=== PATIENT | female | born 1945 | race Caucasian/White ===

== ENCOUNTER 2021-10-19 20:24 | Inpatient (IN) | payer MEDICARE, SELFPAY ==
[2021-10-19 21:03] VITALS: BMI 31.1
--- NOTE | 2021-10-19 21:05 | PHA.MEDREC ---
Pharmacy Consult ? Medication Reconciliation Pharmacy has completed the medication reconciliation.
[2021-10-19 21:11] VITALS: BP 112/70; PULSE 74; RESP 18; TEMP 36.1; O2SAT 97
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
[2021-10-20 07:10] LABS: Cholesterol 143 mg/dL; HDL Cholesterol 44 mg/dL; LDL Cholesterol Calculated 85 mg/dl; Triglycerides 72 mg/dL
--- NOTE | 2021-10-20 07:26 | PC.ADMIT ---
son rhina called to inform him that his mother had arrived safely. son did not answer phone. message left on answering machine that his mother had arrived safely and unit phone number left.
[2021-10-20 07:31] LABS: Thyroid Stimulating Hormone 0.72 uIU/mL (0.32-4.0)
[2021-10-20 07:35] LABS: Estimated Average Glucose 105 mg/dL; Hemoglobin A1C 102.3914 umol/L; Hemoglobin A1c % 5.3 %
[2021-10-20 08:00] VITALS: BP 124/68; PULSE 64; RESP 16; TEMP 36.5; O2SAT 98
[2021-10-20 08:36] LABS: Folate 8.2 ng/mL (> or = 4.0); Vitamin B12 376 pg/mL (200-900)
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
[2021-10-20 18:00] VITALS: BP 103/49; PULSE 64; RESP 16; TEMP 36.6; O2SAT 98
[2021-10-20 19:03] LABS: Appearance Urine CLEAR; Color Urine YELLOW; Glucose Urine UA NEG (NEG); Leukocyte Esterase Urine 1+ (NEG); Nitrite Urine NEG (NEG); Specific Gravity - Urine 1.025 (1.005-1.025); Urine Blood TRACE (NEG); Urine Ketones NEG (NEG); Urine Protein NEG (NEG-TRACE)
[2021-10-20 19:20] LABS: RBC Urine 0-2 /HPF (0); Squamous Epithelial Cell Urine TRACE /LPF
[2021-10-20] MEDS: Atorvastatin Calcium 20 MG TABLET PO (21:07)
--- NOTE | 2021-10-20 23:41 | PC.NURSE ---
unemployment benefits claims taker yue whitney contacted and notified 1. pts med shyann is non-formulary and unavailable from hospital pharmacy 2. pts son Jose Armando is unable to obtain medication 3. pts former nursing facility is also not able to provide medication 4. pts vital signs reviewed.
[2021-10-21 08:00] VITALS: BP 118/57; PULSE 63; RESP 14; TEMP 36.6; O2SAT 96
[2021-10-21] MEDS: hydroCHLOROthiazide 12.5 MG TABLET PO (09:04)
[2021-10-21] MEDS: Sodium Chloride Tab 1 GM TABLET PO (09:04)
[2021-10-21] MEDS: FLUoxetine HCl 20 MG CAPSULE 60 MG PO (09:04)
[2021-10-21] MEDS: Losartan Potassium 50 MG TABLET PO (09:05)
[2021-10-21] MEDS: Donepezil HCl 10 MG TABLET PO (09:05)
[2021-10-21] MEDS: Levothyroxine Sodium 75 MCG TABLET PO (09:05)
[2021-10-21] MEDS: Aspirin Enteric Coated 81 MG TABLET.DR PO (09:05)
[2021-10-21 11:49] VITALS: BMI 30.2
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
[2021-10-21 18:00] VITALS: BP 134/76; PULSE 61; RESP 16; TEMP 36.5; O2SAT 98
[2021-10-21] MEDS: Atorvastatin Calcium 20 MG TABLET PO (21:40)
[2021-10-22 06:00] VITALS: BP 142/76; PULSE 66; RESP 16; TEMP 36.4; O2SAT 98
[2021-10-22] MEDS: Aspirin Enteric Coated 81 MG TABLET.DR PO (09:50)
[2021-10-22] MEDS: FLUoxetine HCl 20 MG CAPSULE 60 MG PO (09:50)
[2021-10-22] MEDS: Donepezil HCl 10 MG TABLET PO (09:50)
[2021-10-22] MEDS: Losartan Potassium 50 MG TABLET PO (09:50)
[2021-10-22] MEDS: Sodium Chloride Tab 1 GM TABLET PO (09:50)
[2021-10-22] MEDS: Levothyroxine Sodium 75 MCG TABLET PO (09:51)
[2021-10-22] MEDS: hydroCHLOROthiazide 12.5 MG TABLET PO (09:51)
--- NOTE | 2021-10-22 15:20 | HO.PSYCHPN ---
Subjective Subjective Date of Service: 10/22/21 Reason For Visit: Unspecified dementia Subjective Notes: Conditional Voluntary Interim History: The nursing staff reported that she has being out in the common areas she attends to groups and she looks pleasantly confused. On interview the patient denies new symptoms she states that she is doing fine. So far we have not seen violent behavior or agitation or paranoia. The aids social worker reported that her son has not called as back yet and we could not get more collateral information at this moment Mental Status Exam Mental Status Exam Patient Appearance: Appropriate Patient Orientation: Person and Situation Level of Consciousness: Awake Mood Description: Calm Affect Description: Constricted Patient Cognition Impaired: Yes Ability to Follow Directions: Fair Speech Pattern: Clear Hallucinations: None Delusions: Not Present Thought Process: Linear Thought Content: positive for Circumstantial Judgement: Fair Diagnostics Vital Signs (24Hr): Vital Signs - 24 hr 10/21/21 18:00 10/22/21 06:00 Temperature 97.7 F 97.5 F Pulse Rate 61 66 Respiratory Rate 16 16 Blood Pressure 134/76 142/76 H Pulse Oximetry 98 98 BMI result Body Mass Index 30.2 Labs Labs: Laboratory Results - last 48 hr 10/20/21 18:40 Urine Color YELLOW Urine Appearance CLEAR Urine pH 6.0 Ur Specific [place] 1.025 Urine Protein NEG Urine Glucose (UA) NEG Urine Ketones NEG Urine Blood TRACE Urine Nitrite NEG Ur Leukocyte Esterase 1+ H Urine RBC 0-2 Urine WBC 5-9 H Ur Squamous Epith Cells TRACE Urine Bacteria NONE Medications Medications Current Medications Acetaminophen (Acetaminophen 325 Mg Tablet) 650 mg PO Q6H PRN PRN Reason: Headache/Pain Mild Scale (1-3) Al Hydroxide/Mg Hydroxide (Magnesium Hydrox/Alum Hydrox 30 Ml Oral.Susp) 30 ml PO Q6H PRN PRN Reason: Heartburn/Nausea Aspirin (Aspirin Enteric Coated 81 Mg Tablet.) 81 mg PO DAILY [facility] Last Admin: 10/22/21 09:50 Dose: 81 mg Documented by: Atorvastatin Calcium (Atorvastatin Calcium 20 Mg Tablet) 20 mg PO BEDTIME [facility] Last Admin: 10/22/21 02:15 Dose: Not Given Documented by: Donepezil HCl (Donepezil Hcl 10 Mg Tablet) 10 mg PO DAILY [facility] Last Admin: 10/22/21 09:50 Dose: 10 mg Documented by: Fluoxetine HCl (Fluoxetine Hcl 20 Mg Capsule) 60 mg PO DAILY [facility] Last Admin: 10/22/21 09:50 Dose: 60 mg Documented by: Hydrochlorothiazide (Hydrochlorothiazide 12.5 Mg Tablet) 12.5 mg PO DAILY [facility] Last Admin: 10/22/21 09:51 Dose: 12.5 mg Documented by: Hydroxyzine HCl (Hydroxyzine Hcl 25 Mg Tablet) 25 mg PO Q6H PRN PRN Reason: Anxiety Levothyroxine Sodium (Levothyroxine Sodium 75 Mcg Tablet) 75 mcg PO DAILY [facility] Last Admin: 10/22/21 09:51 Dose: 75 mcg Documented by: Losartan Potassium (Losartan Potassium 50 Mg Tablet) 50 mg PO DAILY [facility] Last Admin: 10/22/21 09:50 Dose: 50 mg Documented by: Magnesium Hydroxide (Milk Of Magnesia 30 Ml Oral.Susp) 30 ml PO DAILY PRN PRN Reason: Constipation Non-Formulary Medication (Nebivolol [Bystolic]) 5 mg PO DAILY [facility] Sodium Chloride (Sodium Chloride 0.65 % Nasal 44 Ml Sprbtl) 1 spray NOSTRIL-B QID PRN PRN Reason: Allergy Symptoms Sodium Chloride (Sodium Chloride Tab 1 Gm Tablet) 1 gm PO DAILY [facility] Last Admin: 10/22/21 09:50 Dose: 1 gm Documented by: Trazodone HCl (Trazodone Hcl 50 Mg Tablet) 50 mg PO BEDTIME PRN PRN Reason: Insomnia Allergies Allergies Allergy/AdvReac Type Severity Reaction Status Date / Time iodine Allergy Intermediate Rash Verified 10/19/21 21:07 Assessment & Plan Assessment & Plan (1) Hypothyroidism: Status: Inactive Code(s): E03.9 - Hypothyroidism, unspecified (2) Hyperlipidemia: Status: Inactive Code(s): E78.5 - Hyperlipidemia, unspecified (3) H/O: HTN (hypertension): Status: Inactive Code(s): Z86.79 - Personal history of other diseases of the circulatory system (4) Depressive disorder: Status: Acute Code(s): F32.A - Depression, unspecified (5) Dementia: Status: Inactive Code(s): F03.90 - Unspecified dementia without behavioral disturbance Plan The patient is an elderly female with a history of dementia transfer in from her assisted living facility for an episode of violence in the context of UTI. On admission, she has never been violent and she is pleasant and cooperative but looks confused. Plan 1. Continue same medications. 2. Gather collateral information. 3. At this moment we are not going to start any mood stabilizer or psychotropic medication and till we get more collateral information I spent minutes with the patient and/or on the patient floor today, greater than?50% of which was spent counseling/coordinating care. Reason for contiued inpatient stay Substantial Risk for: inability to function, rapid decompensation and med/psych decompensation
[2021-10-22 19:30] VITALS: BP 136/72; PULSE 68; RESP 18; TEMP 36.8; O2SAT 98
[2021-10-22] MEDS: Atorvastatin Calcium 20 MG TABLET PO (20:44)
[2021-10-23 07:40] VITALS: BP 113/70; PULSE 81; RESP 18; TEMP 36.8; O2SAT 99
[2021-10-23] MEDS: Levothyroxine Sodium 75 MCG TABLET PO (09:04)
[2021-10-23] MEDS: hydroCHLOROthiazide 12.5 MG TABLET PO (09:04)
[2021-10-23] MEDS: Sodium Chloride Tab 1 GM TABLET PO (09:04)
[2021-10-23] MEDS: FLUoxetine HCl 20 MG CAPSULE 60 MG PO (09:04)
[2021-10-23] MEDS: Donepezil HCl 10 MG TABLET PO (09:04)
[2021-10-23] MEDS: Aspirin Enteric Coated 81 MG TABLET.DR PO (09:04)
[2021-10-23] MEDS: Losartan Potassium 50 MG TABLET PO (09:05)
--- NOTE | 2021-10-23 09:20 | P.PNPSI_ITS ---
Subjective Subjective Date of Service: 10/23/21 Reason For Visit: Unspecified dementia Subjective Notes: Conditional Voluntary Interim History: The patient has been active in the milieu using walker somewhat expansive at times patient has been accepting treatment Mental Status Exam Mental Status Exam Patient Appearance: Appropriate Patient Orientation: Person and Situation Level of Consciousness: Awake Patient Behavior: Good Eye Contact Mood Description: Calm Affect Description: Constricted Patient Cognition Impaired: Yes Ability to Follow Directions: Fair Speech Pattern: Clear Hallucinations: None Delusions: Not Present Thought Process: Linear Thought Content: positive for Circumstantial Judgement: Fair Diagnostics Vital Signs (24Hr): Vital Signs - 24 hr 10/22/21 19:30 10/23/21 07:40 Temperature 98.2 F 98.3 F Pulse Rate 68 81 Respiratory Rate 18 18 Blood Pressure 136/72 113/70 Pulse Oximetry 98 99 BMI result Body Mass Index 30.2 Medications Medications Current Medications Acetaminophen (Acetaminophen 325 Mg Tablet) 650 mg PO Q6H PRN PRN Reason: Headache/Pain Mild Scale (1-3) Al Hydroxide/Mg Hydroxide (Magnesium Hydrox/Alum Hydrox 30 Ml Oral.Susp) 30 ml PO Q6H PRN PRN Reason: Heartburn/Nausea Aspirin (Aspirin Enteric Coated 81 Mg Tablet.) 81 mg PO DAILY [facility] Last Admin: 10/23/21 09:04 Dose: 81 mg Documented by: Atorvastatin Calcium (Atorvastatin Calcium 20 Mg Tablet) 20 mg PO BEDTIME [facility] Last Admin: 10/22/21 20:44 Dose: 20 mg Documented by: Donepezil HCl (Donepezil Hcl 10 Mg Tablet) 10 mg PO DAILY [facility] Last Admin: 10/23/21 09:04 Dose: 10 mg Documented by: Fluoxetine HCl (Fluoxetine Hcl 20 Mg Capsule) 60 mg PO DAILY [facility] Last Admin: 10/23/21 09:04 Dose: 60 mg Documented by: Hydrochlorothiazide (Hydrochlorothiazide 12.5 Mg Tablet) 12.5 mg PO DAILY [facility] Last Admin: 10/23/21 09:04 Dose: 12.5 mg Documented by: Hydroxyzine HCl (Hydroxyzine Hcl 25 Mg Tablet) 25 mg PO Q6H PRN PRN Reason: Anxiety Levothyroxine Sodium (Levothyroxine Sodium 75 Mcg Tablet) 75 mcg PO DAILY [facility] Last Admin: 10/23/21 09:04 Dose: 75 mcg Documented by: Losartan Potassium (Losartan Potassium 50 Mg Tablet) 50 mg PO DAILY [facility] Last Admin: 10/23/21 09:05 Dose: 50 mg Documented by: Magnesium Hydroxide (Milk Of Magnesia 30 Ml Oral.Susp) 30 ml PO DAILY PRN PRN Reason: Constipation Non-Formulary Medication (Nebivolol [Bystolic]) 5 mg PO DAILY [facility] Sodium Chloride (Sodium Chloride 0.65 % Nasal 44 Ml Sprbtl) 1 spray NOSTRIL-B QID PRN PRN Reason: Allergy Symptoms Sodium Chloride (Sodium Chloride Tab 1 Gm Tablet) 1 gm PO DAILY [facility] Last Admin: 10/23/21 09:04 Dose: 1 gm Documented by: Trazodone HCl (Trazodone Hcl 50 Mg Tablet) 50 mg PO BEDTIME PRN PRN Reason: Insomnia Allergies Allergies Allergy/AdvReac Type Severity Reaction Status Date / Time iodine Allergy Intermediate Rash Verified 10/19/21 21:07 Assessment & Plan Assessment & Plan (1) Depressive disorder: Status: Acute Code(s): F32.A - Depression, unspecified (2) Dementia: Status: Inactive Code(s): F03.90 - Unspecified dementia without behavioral disturbance Plan The patient is an elderly female with a history of dementia transfer in from her assisted living facility for an episode of violence in the context o f UTI. On admission, she has never been violent and she is pleasant and cooperative but looks confused. Plan 1. Continue same medications. 2. Gather collateral information. 3. At this moment we are not going to start any mood stabilizer or psychotropic medication and till we get more collateral information Continue above plan patient is somewhat pressured and expansive not violent or aggressive I spent minutes with the patient and/or on the patient floor today, greater than?50% of which was spent counseling/coordinating care. Patient educated on: diagnosis Informed Consent: does not understand Reason for contiued inpatient stay Substantial Risk for: harm to others and inability to function
[2021-10-23] MEDS: Atorvastatin Calcium 20 MG TABLET PO (20:05)
[2021-10-23 20:50] VITALS: BP 100/58; PULSE 77; RESP 17; TEMP 36.3; O2SAT 99
[2021-10-24 07:50] VITALS: BP 138/90; PULSE 89; RESP 18; TEMP 36.3; O2SAT 98
[2021-10-24] MEDS: hydroCHLOROthiazide 12.5 MG TABLET PO (08:58)
[2021-10-24] MEDS: Sodium Chloride Tab 1 GM TABLET PO (08:58)
[2021-10-24] MEDS: Levothyroxine Sodium 75 MCG TABLET PO (08:59)
[2021-10-24] MEDS: FLUoxetine HCl 20 MG CAPSULE 60 MG PO (08:59)
[2021-10-24] MEDS: Losartan Potassium 50 MG TABLET PO (08:59)
[2021-10-24] MEDS: Donepezil HCl 10 MG TABLET PO (08:59)
[2021-10-24] MEDS: Aspirin Enteric Coated 81 MG TABLET.DR PO (08:59)
--- NOTE | 2021-10-24 19:54 | P.PNPSI_ITS ---
Subjective Subjective Date of Service: 10/24/21 Reason For Visit: Unspecified dementia Subjective Notes: Conditional Voluntary Interim History: Patient's case reviewed with nursing staff in treatment team patient remains mostly behavioral control could be in intrusive irritable with some of the other patient Medication Compliance: Yes Mental Status Exam Mental Status Exam Patient Appearance: Appropriate Patient Orientation: Person and Situation Level of Consciousness: Awake Patient Behavior: Good Eye Contact Mood Description: Labile Affect Description: Anxious, Labile and Angry Patient Cognition Impaired: Yes Ability to Follow Directions: Fair Speech Pattern: Clear Hallucinations: None Delusions: Not Present Thought Process: Linear Thought Content: positive for Circumstantial Judgement: Fair Diagnostics Vital Signs (24Hr): Vital Signs - 24 hr 10/23/21 20:50 10/24/21 07:50 Temperature 97.3 F 97.4 F Pulse Rate 77 89 Respiratory Rate 17 18 Blood Pressure 100/58 L 138/90 H Pulse Oximetry 99 98 BMI result Body Mass Index 30.2 Medications Medications Current Medications Acetaminophen (Acetaminophen 325 Mg Tablet) 650 mg PO Q6H PRN PRN Reason: Headache/Pain Mild Scale (1-3) Al Hydroxide/Mg Hydroxide (Magnesium Hydrox/Alum Hydrox 30 Ml Oral.Susp) 30 ml PO Q6H PRN PRN Reason: Heartburn/Nausea Aspirin (Aspirin Enteric Coated 81 Mg Tablet.Dr) 81 mg PO DAILY [facility] Last Admin: 10/24/21 08:59 Dose: 81 mg Documented by: Atorvastatin Calcium (Atorvastatin Calcium 20 Mg Tablet) 20 mg PO BEDTIME [facility] Last Admin: 10/23/21 20:05 Dose: 20 mg Documented by: Donepezil HCl (Donepezil Hcl 10 Mg Tablet) 10 mg PO DAILY [facility] Last Admin: 10/24/21 08:59 Dose: 10 mg Documented by: Fluoxetine HCl (Fluoxetine Hcl 20 Mg Capsule) 60 mg PO DAILY [facility] Last Admin: 10/24/21 08:59 Dose: 60 mg Documented by: Hydrochlorothiazide (Hydrochlorothiazide 12.5 Mg Tablet) 12.5 mg PO DAILY [facility] Last Admin: 10/24/21 08:58 Dose: 12.5 mg Documented by: Hydroxyzine HCl (Hydroxyzine Hcl 25 Mg Tablet) 25 mg PO Q6H PRN PRN Reason: Anxiety Levothyroxine Sodium (Levothyroxine Sodium 75 Mcg Tablet) 75 mcg PO DAILY [facility] Last Admin: 10/24/21 08:59 Dose: 75 mcg Documented by: Losartan Potassium (Losartan Potassium 50 Mg Tablet) 50 mg PO DAILY [facility] Last Admin: 10/24/21 08:59 Dose: 50 mg Documented by: Magnesium Hydroxide (Milk Of Magnesia 30 Ml Oral.Susp) 30 ml PO DAILY PRN PRN Reason: Constipation Sodium Chloride (Sodium Chloride 0.65 % Nasal 44 Ml Sprbtl) 1 spray NOSTRIL-B QID PRN PRN Reason: Allergy Symptoms Sodium Chloride (Sodium Chloride Tab 1 Gm Tablet) 1 gm PO DAILY [facility] Last Admin: 10/24/21 08:58 Dose: 1 gm Documented by: Trazodone HCl (Trazodone Hcl 50 Mg Tablet) 50 mg PO BEDTIME PRN PRN Reason: Insomnia Allergies Allergies Allergy/AdvReac Type Severity Reaction Status Date / Time iodine Allergy Intermediate Rash Verified 10/19/21 21:07 Assessment & Plan Assessment & Plan (1) Depressive disorder: Status: Acute Code(s): F32.A - Depression, unspecified (2) Dementia: Status: Inactive Code(s): F03.90 - Unspecified dementia without behavioral disturbance Plan The patient is an elderly female with a history of dementia transfer in from her assisted living facility for an episode of violence in the context of UTI. On admission, she has never been violent and she is pleasant and cooperative but looks confused. Some periods of irritability intrusiveness Continue fluoxetine Aricept Informed Consent: does not understand Reason for contiued inpatient stay Substantial Risk for: harm to others, inability to function and rapid decompensation
[2021-10-25 08:00] VITALS: BP 103/57; PULSE 80; RESP 16; TEMP 36.3; O2SAT 97
[2021-10-25] MEDS: Aspirin Enteric Coated 81 MG TABLET.DR PO (08:50)
[2021-10-25] MEDS: FLUoxetine HCl 20 MG CAPSULE 60 MG PO (08:51)
[2021-10-25] MEDS: Donepezil HCl 10 MG TABLET PO (08:51)
[2021-10-25] MEDS: Losartan Potassium 50 MG TABLET PO (08:51)
[2021-10-25] MEDS: Sodium Chloride Tab 1 GM TABLET PO (08:51)
[2021-10-25] MEDS: hydroCHLOROthiazide 12.5 MG TABLET PO (08:51)
[2021-10-25] MEDS: Levothyroxine Sodium 75 MCG TABLET PO (11:00)
--- NOTE | 2021-10-25 16:06 | HO.PSYCHPN ---
Subjective Subjective Date of Service: 10/25/21 Reason For Visit: Unspecified dementia Subjective Notes: Conditional Voluntary Interim History: The nursing staff reported the patient to be pleasantly confused. The social services counselor reported that her son has not called back and the [facility] already discharged her. At this moment we then have collateral information besides the reports of the [facility]. On interview, the patient denies new symptoms she is pleasant and cooperative but confused Mental Status Exam Mental Status Exam Patient Appearance: Well Grooomed Patient Orientation: Person and Situation Level of Consciousness: Awake Patient Behavior: Appropriate Mood Description: Calm Affect Description: Constricted Patient Cognition Impaired: Yes Ability to Follow Directions: Good Speech Pattern: Appropriate Hallucinations: None Delusions: Not Present Thought Process: Distracted Thought Content: positive for Ray and positive for Poverty of Content Judgement: Fair Diagnostics Vital Signs (24Hr): Vital Signs - 24 hr 10/25/21 08:00 Temperature 97.4 F Pulse Rate 80 Respiratory Rate 16 Blood Pressure 103/57 L Pulse Oximetry 97 BMI result Body Mass Index 30.2 Medications Medications Current Medications Acetaminophen (Acetaminophen 325 Mg Tablet) 650 mg PO Q6H PRN PRN Reason: Headache/Pain Mild Scale (1-3) Al Hydroxide/Mg Hydroxide (Magnesium Hydrox/Alum Hydrox 30 Ml Oral.Susp) 30 ml PO Q6H PRN PRN Reason: Heartburn/Nausea Aspirin (Aspirin Enteric Coated 81 Mg Tablet.) 81 mg PO DAILY [facility] Last Admin: 10/25/21 08:50 Dose: 81 mg Documented by: Atorvastatin Calcium (Atorvastatin Calcium 20 Mg Tablet) 20 mg PO BEDTIME [facility] Last Admin: 10/25/21 00:11 Dose: Not Given Documented by: Divalproex Sodium (Divalproex Sodium 250 Mg Tablet.) 125 mg PO TID [facility] Donepezil HCl (Donepezil Hcl 10 Mg Tablet) 10 mg PO DAILY [facility] Last Admin: 10/25/21 08:51 Dose: 10 mg Documented by: Fluoxetine HCl (Fluoxetine Hcl 20 Mg Capsule) 60 mg PO DAILY [facility] Last Admin: 10/25/21 08:51 Dose: 60 mg Documented by: Hydrochlorothiazide (Hydrochlorothiazide 12.5 Mg Tablet) 12.5 mg PO DAILY [facility] Last Admin: 10/25/21 08:51 Dose: 12.5 mg Documented by: Hydroxyzine HCl (Hydroxyzine Hcl 25 Mg Tablet) 25 mg PO Q6H PRN PRN Reason: Anxiety Levothyroxine Sodium (Levothyroxine Sodium 75 Mcg Tablet) 75 mcg PO DAILY [facility] Last Admin: 10/25/21 11:00 Dose: 75 mcg Documented by: Losartan Potassium (Losartan Potassium 50 Mg Tablet) 50 mg PO DAILY [facility] Last Admin: 10/25/21 08:51 Dose: 50 mg Documented by: Magnesium Hydroxide (Milk Of Magnesia 30 Ml Oral.Susp) 30 ml PO DAILY PRN PRN Reason: Constipation Sodium Chloride (Sodium Chloride 0.65 % Nasal 44 Ml Sprbtl) 1 spray NOSTRIL-B QID PRN PRN Reason: Allergy Symptoms Sodium Chloride (Sodium Chloride Tab 1 Gm Tablet) 1 gm PO DAILY [facility] Last Admin: 10/25/21 08:51 Dose: 1 gm Documented by: Trazodone HCl (Trazodone Hcl 50 Mg Tablet) 50 mg PO BEDTIME PRN PRN Reason: Insomnia Allergies Allergies Allergy/AdvReac Type Severity Reaction Status Date / Time iodine Allergy Intermediate Rash Verified 10/19/21 21:07 Assessment & Plan Assessment & Plan (1) Depressive disorder: Status: Acute Code(s): F32.A - Depression, unspecified (2) Dementia: Status: Inactive Code(s): F03.90 - Unspecified dementia without behavioral disturbance Plan The patient is an elderly female with a history of dementia transfer in from her assisted living facility for an episode of violence in the context of UTI. On admission, she has never been violent and she is pleasant and cooperative but looks confused. Some periods of irritability intrusiveness Continue fluoxetine Aricept Start a low dose of Depakote to target mood lability I spent ___20___ minutes with the patient and/or on the patient floor today, greater than?50% of which was spent counseling/coordinating care. Patient educated on: diagnosis and therapeutic strategies Informed Consent: further education needed Reason for contiued inpatient stay Substantial Risk for: inability to function, rapid decompensation and med/psych decompensation
[2021-10-25 18:00] VITALS: BP 112/55; PULSE 62; RESP 14; TEMP 36.4; O2SAT 98
[2021-10-25] MEDS: Atorvastatin Calcium 20 MG TABLET PO (20:31)
[2021-10-25] MEDS: traZODone HCL 25 MG HALFTAB PO (20:31)
[2021-10-25] MEDS: Divalproex Sodium Sprinkles 125 MG CAP.DR.SPR PO (20:32)
[2021-10-26 08:00] VITALS: BP 128/68; PULSE 62; TEMP 36.4; O2SAT 98
[2021-10-26] MEDS: Losartan Potassium 50 MG TABLET PO (08:24)
[2021-10-26] MEDS: FLUoxetine HCl 20 MG CAPSULE 60 MG PO (08:24)
[2021-10-26] MEDS: hydroCHLOROthiazide 12.5 MG TABLET PO (08:24)
[2021-10-26] MEDS: Donepezil HCl 10 MG TABLET PO (08:24)
[2021-10-26] MEDS: Divalproex Sodium Sprinkles 125 MG CAP.DR.SPR PO ×3 (08:24→20:30)
[2021-10-26] MEDS: Aspirin Enteric Coated 81 MG TABLET.DR PO (08:25)
[2021-10-26] MEDS: Levothyroxine Sodium 75 MCG TABLET PO (08:25)
[2021-10-26] MEDS: Sodium Chloride Tab 1 GM TABLET PO (09:58)
--- NOTE | 2021-10-26 11:40 | HO.PSYCHPN ---
Subjective Subjective Date of Service: 10/26/21 Reason For Visit: Unspecified dementia Subjective Notes: Conditional Voluntary Interim History: The nursing staff reported that the patient has been confused at times but easily redirectable. Poor short-term memory is evident. And occupational therapy reported that in groups she is very talkative and sometimes, other peers, got agitated because she is very verbal. So far, in the unit week, we have not seen violent behavior and she is mostly pleasantly confused. On interview, the patient denies new symptoms, easily redirectable. The medical social worker has contacted her son for more collateral information Mental Status Exam Mental Status Exam Patient Appearance: Appropriate Patient Orientation: Person Level of Consciousness: Awake Patient Behavior: Talkative, Cooperative and Passive Mood Description: Cheerful Affect Description: Labile Patient Cognition Impaired: Yes Ability to Follow Directions: Good Speech Pattern: Clear Hallucinations: None Delusions: Not Present Thought Process: Distracted and Evasive Thought Content: positive for Poverty of Content and positive for Thought Blocking Judgement: Fair Diagnostics Vital Signs (24Hr): Vital Signs - 24 hr 10/25/21 18:00 10/26/21 08:00 Temperature 97.6 F 97.5 F Pulse Rate 62 62 Respiratory Rate 14 Blood Pressure 112/55 L 128/68 Pulse Oximetry 98 98 BMI result Body Mass Index 30.2 Medications Medications Current Medications Acetaminophen (Acetaminophen 325 Mg Tablet) 650 mg PO Q6H PRN PRN Reason: Headache/Pain Mild Scale (1-3) Al Hydroxide/Mg Hydroxide (Magnesium Hydrox/Alum Hydrox 30 Ml Oral.Susp) 30 ml PO Q6H PRN PRN Reason: Heartburn/Nausea Aspirin (Aspirin Enteric Coated 81 Mg Jaleel.) 81 mg PO DAILY [facility] Last Admin: 10/26/21 08:25 Dose: 81 mg Documented by: Atorvastatin Calcium (Atorvastatin Calcium 20 Mg Tablet) 20 mg PO BEDTIME [facility] Last Admin: 10/25/21 20:31 Dose: 20 mg Documented by: Divalproex Sodium (Divalproex Sodium Sprinkles 125 Mg Cap) 125 mg PO TID [facility] Last Admin: 10/26/21 08:24 Dose: 125 mg Documented by: Donepezil HCl (Donepezil Hcl 10 Mg Tablet) 10 mg PO DAILY [facility] Last Admin: 10/26/21 08:24 Dose: 10 mg Documented by: Fluoxetine HCl (Fluoxetine Hcl 20 Mg Capsule) 60 mg PO DAILY [facility] Last Admin: 10/26/21 08:24 Dose: 60 mg Documented by: Hydrochlorothiazide (Hydrochlorothiazide 12.5 Mg Tablet) 12.5 mg PO DAILY [facility] Last Admin: 10/26/21 08:24 Dose: 12.5 mg Documented by: Hydroxyzine HCl (Hydroxyzine Hcl 25 Mg Tablet) 25 mg PO Q6H PRN PRN Reason: Anxiety Levothyroxine Sodium (Levothyroxine Sodium 75 Mcg Tablet) 75 mcg PO DAILY [facility] Last Admin: 10/26/21 08:25 Dose: 75 mcg Documented by: Losartan Potassium (Losartan Potassium 50 Mg Tablet) 50 mg PO DAILY [facility] Last Admin: 10/26/21 08:24 Dose: 50 mg Documented by: Magnesium Hydroxide (Milk Of Magnesia 30 Ml Oral.Susp) 30 ml PO DAILY PRN PRN Reason: Constipation Sodium Chloride (Sodium Chloride 0.65 % Nasal 44 Ml Sprbtl) 1 spray NOSTRIL-B QID PRN PRN Reason: Allergy Symptoms Sodium Chloride (Sodium Chloride Tab 1 Gm Tablet) 1 gm PO DAILY [facility] Last Admin: 10/26/21 09:58 Dose: 1 gm Documented by: Trazodone HCl (Trazodone Hcl 50 Mg Tablet) 50 mg PO BEDTIME PRN PRN Reason: Insomnia Trazodone HCl (Trazodone Hcl 25 Mg Halftab) 25 mg PO TID PRN PRN Reason: Anxiety Last Admin: 10/25/21 20:31 Dose: 25 mg Documented by: Allergies Allergies Allergy/AdvReac Type Severity Reaction Status Date / Time iodine Allergy Intermediate Rash Verified 10/19/21 21:07 Assessment & Plan Assessment & Plan (1) Depressive disorder: Status: Acute Code(s): F32.A - Depression, unspecified (2) Dementia: Status: Inactive Code(s): F03.90 - Unspecified dementia without behavioral disturbance Plan The patient is an elderly female with a history of dementia transfer in from her assisted living facility for an episode of violence in the context of UTI. On admission, she has never been violent and she is pleasant and cooperative but looks confused. Some periods of irritability intrusiveness Continue fluoxetine Aricept Start a low dose of Depakote to target mood lability. I spent ___20___ minutes with the patient and/or on the patient floor today, greater than?50% of which was spent counseling/coordinating care. Patient educated on: diagnosis and therapeutic strategies Informed Consent: further education needed Reason for contiued inpatient stay Substantial Risk for: stable for discharge, rapid decompensation and med/psych decompensation
[2021-10-26] MEDS: Atorvastatin Calcium 20 MG TABLET PO (20:30)
[2021-10-26] MEDS: traZODone HCL 50 MG TABLET PO (20:31)
[2021-10-26 21:14] VITALS: BP 120/90; PULSE 888; TEMP 36.1; O2SAT 97
[2021-10-27 08:46] VITALS: BP 108/65; PULSE 88; RESP 16; TEMP 36.5; O2SAT 100
[2021-10-27] MEDS: FLUoxetine HCl 20 MG CAPSULE 60 MG PO (09:09)
[2021-10-27] MEDS: hydroCHLOROthiazide 12.5 MG TABLET PO (09:09)
[2021-10-27] MEDS: Aspirin Enteric Coated 81 MG TABLET.DR PO (09:09)
[2021-10-27] MEDS: Levothyroxine Sodium 75 MCG TABLET PO (09:09)
[2021-10-27] MEDS: Losartan Potassium 50 MG TABLET PO (09:10)
[2021-10-27] MEDS: Sodium Chloride Tab 1 GM TABLET PO (09:10)
[2021-10-27] MEDS: Divalproex Sodium Sprinkles 125 MG CAP.DR.SPR PO ×3 (09:10→21:34)
[2021-10-27] MEDS: Donepezil HCl 10 MG TABLET PO (09:10)
--- NOTE | 2021-10-27 12:36 | HO.PSYCHPN ---
Subjective Subjective Date of Service: 10/27/21 Reason For Visit: Unspecified dementia Subjective Notes: Conditional Voluntary Interim History: The nursing staff reported that the patient has participated in groups and she looks less intrusive since Depakote was started. Today, we did a [place] she scored 17/30. On interview, the patient denies new symptoms she feels okay, she is fully compliant with treatment Mental Status Exam Mental Status Exam Patient Appearance: Appropriate Patient Orientation: Person Level of Consciousness: Awake Patient Behavior: Appropriate and Passive Mood Description: Calm Affect Description: Constricted Patient Cognition Impaired: Yes Ability to Follow Directions: Good Speech Pattern: Clear Memory Description: Intact Hallucinations: None Delusions: Not Present Thought Process: Illogical and Slowed Thinking Thought Content: positive for Circumstantial Judgement: Poor Diagnostics Vital Signs (24Hr): Vital Signs - 24 hr 10/26/21 21:14 10/27/21 08:46 Temperature 97 F 97.7 F Pulse Rate 888 H 88 Respiratory Rate 16 Blood Pressure 120/90 H 108/65 Pulse Oximetry 97 100 BMI result Body Mass Index 30.2 Medications Medications Current Medications Acetaminophen (Acetaminophen 325 Mg Tablet) 650 mg PO Q6H PRN PRN Reason: Headache/Pain Mild Scale (1-3) Al Hydroxide/Mg Hydroxide (Magnesium Hydrox/Alum Hydrox 30 Ml Oral.Susp) 30 ml PO Q6H PRN PRN Reason: Heartburn/Nausea Aspirin (Aspirin Enteric Coated 81 Mg Tablet.) 81 mg PO DAILY [facility] Last Admin: 10/27/21 09:09 Dose: 81 mg Documented by: Atorvastatin Calcium (Atorvastatin Calcium 20 Mg Tablet) 20 mg PO BEDTIME [facility] Last Admin: 10/26/21 20:30 Dose: 20 mg Documented by: Divalproex Sodium (Divalproex Sodium Sprinkles 125 Mg ) 125 mg PO TID [facility] Last Admin: 10/27/21 09:10 Dose: 125 mg Documented by: Donepezil HCl (Donepezil Hcl 10 Mg Tablet) 10 mg PO DAILY [facility] Last Admin: 10/27/21 09:10 Dose: 10 mg Documented by: Fluoxetine HCl (Fluoxetine Hcl 20 Mg Capsule) 60 mg PO DAILY [facility] Last Admin: 10/27/21 09:09 Dose: 60 mg Documented by: Hydrochlorothiazide (Hydrochlorothiazide 12.5 Mg Tablet) 12.5 mg PO DAILY [facility] Last Admin: 10/27/21 09:09 Dose: 12.5 mg Documented by: Hydroxyzine HCl (Hydroxyzine Hcl 25 Mg Tablet) 25 mg PO Q6H PRN PRN Reason: Anxiety Levothyroxine Sodium (Levothyroxine Sodium 75 Mcg Tablet) 75 mcg PO DAILY [facility] Last Admin: 10/27/21 09:09 Dose: 75 mcg Documented by: Losartan Potassium (Losartan Potassium 50 Mg Tablet) 50 mg PO DAILY [facility] Last Admin: 10/27/21 09:10 Dose: 50 mg Documented by: Magnesium Hydroxide (Milk Of Magnesia 30 Ml Oral.Susp) 30 ml PO DAILY PRN PRN Reason: Constipation Sodium Chloride (Sodium Chloride 0.65 % Nasal 44 Ml Sprbtl) 1 spray NOSTRIL-B QID PRN PRN Reason: Allergy Symptoms Sodium Chloride (Sodium Chloride Tab 1 Gm Tablet) 1 gm PO DAILY [facility] Last Admin: 10/27/21 09:10 Dose: 1 gm Documented by: Trazodone HCl (Trazodone Hcl 50 Mg Tablet) 50 mg PO BEDTIME PRN PRN Reason: Insomnia Last Admin: 10/26/21 20:31 Dose: 50 mg Documented by: Trazodone HCl (Trazodone Hcl 25 Mg Halftab) 25 mg PO TID PRN PRN Reason: Anxiety Last Admin: 10/25/21 20:31 Dose: 25 mg Documented by: Allergies Allergies Allergy/AdvReac Type Severity Reaction Status Date / Time iodine Allergy Intermediate Rash Verified 10/19/21 21:07 Assessment & Plan Assessment & Plan (1) Depressive disorder: Status: Acute Code(s): F32.A - Depression, unspecified (2) Dementia: Status: Inactive Code(s): F03.90 - Unspecified dementia without behavioral disturbance Plan The patient is an elderly female with a history of dementia transfer in from her assisted living facility for an episode of violence in the context of UTI. On admission, she has never been violent and she is pleasant and cooperative but looks confused. Some periods of irritability intrusiveness Continue fluoxetine Aricept Keep a low dose of Depakote to target mood lability. I spent ___20___ minutes with the patient and/or on the patient floor today, greater than?50% of which was spent counseling/coordinating care. Patient educated on: therapeutic strategies Informed Consent: further education needed Reason for contiued inpatient stay Substantial Risk for: inability to function, rapid decompensation and med/psych decompensation
[2021-10-27] MEDS: Atorvastatin Calcium 20 MG TABLET PO (21:34)
[2021-10-27 22:10] VITALS: BP 119/65; PULSE 79; RESP 18; TEMP 36.4; O2SAT 97
[2021-10-28 07:00] VITALS: BMI 31.0
[2021-10-28 08:42] VITALS: BP 134/76; PULSE 71; RESP 14; TEMP 36.3; O2SAT 99
[2021-10-28] MEDS: FLUoxetine HCl 20 MG CAPSULE 60 MG PO (09:07)
[2021-10-28] MEDS: Losartan Potassium 50 MG TABLET PO (09:07)
[2021-10-28] MEDS: Divalproex Sodium Sprinkles 125 MG CAP.DR.SPR PO ×3 (09:07→21:01)
[2021-10-28] MEDS: Donepezil HCl 10 MG TABLET PO (09:08)
[2021-10-28] MEDS: Aspirin Enteric Coated 81 MG TABLET.DR PO (09:08)
[2021-10-28] MEDS: Sodium Chloride Tab 1 GM TABLET PO (09:08)
[2021-10-28] MEDS: Levothyroxine Sodium 75 MCG TABLET PO (09:08)
[2021-10-28] MEDS: hydroCHLOROthiazide 12.5 MG TABLET PO (09:08)
--- NOTE | 2021-10-28 14:22 | HO.PSYCHPN ---
Subjective Subjective Date of Service: 10/28/21 Reason For Visit: Unspecified dementia Subjective Notes: Conditional Voluntary Interim History: The nursing staff reported the patient attends to groups and she is less disruptive. Her [place] test is . The case operatormanager title the social work therapist and apparently they were thinking of probably a memory unit for her. Today we will do the ACL test to see her level of functionality. On interview the patient denies new symptoms she is cheerful and pleasantly confused, she wants to be discharged as soon as possible. Mental Status Exam Mental Status Exam Patient Appearance: Well Grooomed Patient Orientation: Person Level of Consciousness: Awake Patient Behavior: Cooperative Mood Description: Calm Affect Description: Constricted Patient Cognition Impaired: Yes Ability to Follow Directions: Good Speech Pattern: Clear Hallucinations: None Delusions: Not Present Thought Process: Distracted and Evasive Thought Content: positive for [place] and positive for Poverty of Content Judgement: Fair Diagnostics Vital Signs (24Hr): Vital Signs - 24 hr 10/27/21 22:10 10/28/21 08:42 Temperature 97.6 F 97.4 F Pulse Rate 79 71 Respiratory Rate 18 14 Blood Pressure 119/65 134/76 Pulse Oximetry 97 99 BMI result Body Mass Index 31.0 Medications Medications Current Medications Acetaminophen (Acetaminophen 325 Mg Tablet) 650 mg PO Q6H PRN PRN Reason: Headache/Pain Mild Scale (1-3) Al Hydroxide/Mg Hydroxide (Magnesium Hydrox/Alum Hydrox 30 Ml Oral.Susp) 30 ml PO Q6H PRN PRN Reason: Heartburn/Nausea Aspirin (Aspirin Enteric Coated 81 Mg Tablet.) 81 mg PO DAILY [facility] Last Admin: 10/28/21 09:08 Dose: 81 mg Documented by: Atorvastatin Calcium (Atorvastatin Calcium 20 Mg Tablet) 20 mg PO BEDTIME [facility] Last Admin: 10/27/21 21:34 Dose: 20 mg Documented by: Divalproex Sodium (Divalproex Sodium Sprinkles 125 Mg ) 125 mg PO TID [facility] Last Admin: 10/28/21 09:07 Dose: 125 mg Documented by: Donepezil HCl (Donepezil Hcl 10 Mg Tablet) 10 mg PO DAILY [facility] Last Admin: 10/28/21 09:08 Dose: 10 mg Documented by: Fluoxetine HCl (Fluoxetine Hcl 20 Mg Capsule) 60 mg PO DAILY [facility] Last Admin: 10/28/21 09:07 Dose: 60 mg Documented by: Hydrochlorothiazide (Hydrochlorothiazide 12.5 Mg Tablet) 12.5 mg PO DAILY [facility] Last Admin: 10/28/21 09:08 Dose: 12.5 mg Documented by: Hydroxyzine HCl (Hydroxyzine Hcl 25 Mg Tablet) 25 mg PO Q6H PRN PRN Reason: Anxiety Levothyroxine Sodium (Levothyroxine Sodium 75 Mcg Tablet) 75 mcg PO DAILY [facility] Last Admin: 10/28/21 09:08 Dose: 75 mcg Documented by: Losartan Potassium (Losartan Potassium 50 Mg Tablet) 50 mg PO DAILY [facility] Last Admin: 10/28/21 09:07 Dose: 50 mg Documented by: Magnesium Hydroxide (Milk Of Magnesia 30 Ml Oral.Susp) 30 ml PO DAILY PRN PRN Reason: Constipation Sodium Chloride (Sodium Chloride 0.65 % Nasal 44 Ml Sprbtl) 1 spray NOSTRIL-B QID PRN PRN Reason: Allergy Symptoms Sodium Chloride (Sodium Chloride Tab 1 Gm Tablet) 1 gm PO DAILY [facility] Last Admin: 10/28/21 09:08 Dose: 1 gm Documented by: Trazodone HCl (Trazodone Hcl 50 Mg Tablet) 50 mg PO BEDTIME PRN PRN Reason: Insomnia Last Admin: 10/26/21 20:31 Dose: 50 mg Documented by: Trazodone HCl (Trazodone Hcl 25 Mg Halftab) 25 mg PO TID PRN PRN Reason: Anxiety Last Admin: 10/25/21 20:31 Dose: 25 mg Documented by: Allergies Allergies Allergy/AdvReac Type Severity Reaction Status Date / Time iodine Allergy Intermediate Rash Verified 10/19/21 21:07 Assessment & Plan Assessment & Plan (1) Depressive disorder: Status: Acute Code(s): F32.A - Depression, unspecified (2) Dementia: Status: Inactive Code(s): F03.90 - Unspecified dementia without behavioral disturbance Plan The patient is an elderly female with a history of dementia transfer in from her assisted living facility for an episode of violence in the context of UTI. On admission, she has never been violent and she is pleasant and cooperative but looks confused. Some periods of irritability intrusiveness Continue fluoxetine Aricept Keep a low dose of Depakote to target mood lability. I spent __20____ minutes with the patient and/or on the patient floor today, greater than?50% of which was spent counseling/coordinating care. Patient educated on: therapeutic strategies Informed Consent: further education needed Reason for contiued inpatient stay Substantial Risk for: inability to function, rapid decompensation and med/psych decompensation
[2021-10-28] MEDS: Atorvastatin Calcium 20 MG TABLET PO (21:01)
[2021-10-28 22:00] VITALS: BP 133/73; PULSE 69; RESP 17; TEMP 36.3; O2SAT 99
--- NOTE | 2021-10-29 07:11 | HO.PSYCHPN ---
Subjective Subjective Date of Service: 10/29/21 Reason For Visit: Unspecified dementia Subjective Notes: Conditional Voluntary Interim History: Pt with not oriented to situation. Pt presents as pleasant. She reports mood being good. She denies SI/HI. She denies any pain. She reports sleeping and eating well. Per nursing, pt visible in the unit, social with select peers, no behavioral concerns. taking medications as prescribed. Very social, trying to organized groups or social gathering with peers. Medication Compliance: Yes Side effects from medications: No Attending Groups: Yes Mental Status Exam Mental Status Exam Patient Appearance: Well Grooomed Patient Orientation: Person Level of Consciousness: Awake Patient Behavior: Cooperative Mood Description: Calm Affect Description: Constricted Patient Cognition Impaired: Yes Ability to Follow Directions: Good Speech Pattern: Clear Memory Description: Intact Diagnostics Vital Signs (24Hr): Vital Signs - 24 hr 10/31/21 08:00 10/31/21 20:02 Temperature 98.4 F 97.4 F Pulse Rate 72 97 Respiratory Rate 18 Blood Pressure 112/59 L 130/68 Pulse Oximetry 97 67 L BMI result Body Mass Index 31.0 Medications Medications Current Medications Acetaminophen (Acetaminophen 325 Mg Tablet) 650 mg PO Q6H PRN PRN Reason: Headache/Pain Mild Scale (1-3) Al Hydroxide/Mg Hydroxide (Magnesium Hydrox/Alum Hydrox 30 Ml Oral.Susp) 30 ml PO Q6H PRN PRN Reason: Heartburn/Nausea Last Admin: 10/30/21 20:24 Dose: 30 ml Documented by: Aspirin (Aspirin Enteric Coated 81 Mg Jaleel.) 81 mg PO DAILY [facility] Last Admin: 10/31/21 08:33 Dose: 81 mg Documented by: Atorvastatin Calcium (Atorvastatin Calcium 20 Mg Tablet) 20 mg PO BEDTIME [facility] Last Admin: 10/31/21 20:42 Dose: 20 mg Documented by: Divalproex Sodium (Divalproex Sodium Sprinkles 125 Mg ) 125 mg PO TID [facility] Last Admin: 10/31/21 20:42 Dose: 125 mg Documented by: Donepezil HCl (Donepezil Hcl 10 Mg Tablet) 10 mg PO DAILY [facility] Last Admin: 10/31/21 08:33 Dose: 10 mg Documented by: Famotidine (Famotidine 20 Mg Tablet) 20 mg PO DAILY [facility] Last Admin: 10/31/21 08:34 Dose: 20 mg Documented by: Fluoxetine HCl (Fluoxetine Hcl 20 Mg Capsule) 60 mg PO DAILY [facility] Last Admin: 10/31/21 08:33 Dose: 60 mg Documented by: Hydrochlorothiazide (Hydrochlorothiazide 12.5 Mg Tablet) 12.5 mg PO DAILY [facility] Last Admin: 10/31/21 08:33 Dose: 12.5 mg Documented by: Hydroxyzine HCl (Hydroxyzine Hcl 25 Mg Tablet) 25 mg PO Q6H PRN PRN Reason: Anxiety Levothyroxine Sodium (Levothyroxine Sodium 75 Mcg Tablet) 75 mcg PO DAILY [facility] Last Admin: 10/31/21 08:34 Dose: 75 mcg Documented by: Losartan Potassium (Losartan Potassium 50 Mg Tablet) 50 mg PO DAILY [facility] Last Admin: 10/31/21 08:33 Dose: 50 mg Documented by: Magnesium Hydroxide (Milk Of Magnesia 30 Ml Oral.Susp) 30 ml PO DAILY PRN PRN Reason: Constipation Sodium Chloride (Sodium Chloride 0.65 % Nasal 44 Ml Sprbtl) 1 spray NOSTRIL-B QID PRN PRN Reason: Allergy Symptoms Sodium Chloride (Sodium Chloride Tab 1 Gm Tablet) 1 gm PO DAILY [facility] Last Admin: 10/31/21 08:33 Dose: 1 gm Documented by: Trazodone HCl (Trazodone Hcl 50 Mg Tablet) 50 mg PO BEDTIME PRN PRN Reason: Insomnia Last Admin: 10/29/21 21:26 Dose: 50 mg Documented by: Trazodone HCl (Trazodone Hcl 25 Mg Halftab) 25 mg PO TID PRN PRN Reason: Anxiety Last Admin: 10/25/21 20:31 Dose: 25 mg Documented by: Allergies Allergies Allergy/AdvReac Type Severity Reaction Status Date / Time iodine Allergy Intermediate Rash Verified 10/19/21 21:07 Assessment & Plan Assessment & Plan (1) Depressive disorder: Status: Acute Code(s): F32.A - Depression, unspecified (2) Dementia: Status: Inactive Code(s): F03.90 - Unspecified dementia without behavioral disturbance Plan The patient is an elderly female with a history of dementia transfer in from her assisted living facility for an episode of violence in the context of UTI. On admission, she has never been violent and she is pleasant and cooperative but looks confused. Some periods of irritability intrusiveness Continue fluoxetine Aricept Keep a low dose of Depakote to target mood lability. 3/4 no medication changes. I spent minutes with the patient and/or on the patient floor today, greater than?50% of which was spent counseling/coordinating care. Reason for contiued inpatient stay Substantial Risk for: inability to function
[2021-10-29 08:00] VITALS: BP 127/73; PULSE 86; RESP 16; TEMP 36.5; O2SAT 96
[2021-10-29] MEDS: Aspirin Enteric Coated 81 MG TABLET.DR PO (08:28)
[2021-10-29] MEDS: Losartan Potassium 50 MG TABLET PO (08:28)
[2021-10-29] MEDS: Levothyroxine Sodium 75 MCG TABLET PO (08:28)
[2021-10-29] MEDS: Sodium Chloride Tab 1 GM TABLET PO (08:28)
[2021-10-29] MEDS: FLUoxetine HCl 20 MG CAPSULE 60 MG PO (08:28)
[2021-10-29] MEDS: Donepezil HCl 10 MG TABLET PO (08:29)
[2021-10-29] MEDS: Divalproex Sodium Sprinkles 125 MG CAP.DR.SPR PO ×3 (08:29→21:27)
[2021-10-29] MEDS: hydroCHLOROthiazide 12.5 MG TABLET PO (08:29)
[2021-10-29 18:00] VITALS: BP 145/70; PULSE 72; RESP 16; TEMP 36.2; O2SAT 100
[2021-10-29] MEDS: Atorvastatin Calcium 20 MG TABLET PO (21:26)
[2021-10-29] MEDS: traZODone HCL 50 MG TABLET PO (21:26)
--- NOTE | 2021-10-30 07:14 | P.PNPSI_ITS ---
Subjective Subjective Date of Service: 10/30/21 Reason For Visit: Unspecified dementia Subjective Notes: Conditional Voluntary Interim History: Pt with not oriented to situation. Continues to present as pleasant. She reports mood being good. She denies SI/HI. She reports acid reflux- added pepcid. She reports sleeping and eating well. Per nursing, pt visible in the unit, social with select peers, no behavioral concerns. taking medications as prescribed. Very social, trying to organized groups or social gathering with peers. Medication Compliance: Yes Side effects from medications: No Mental Status Exam Mental Status Exam Patient Appearance: Well Grooomed Patient Orientation: Person Level of Consciousness: Awake Patient Behavior: Cooperative Mood Description: Calm Affect Description: Constricted Patient Cognition Impaired: Yes Ability to Follow Directions: Good Speech Pattern: Clear Memory Description: Intact Diagnostics Vital Signs (24Hr): Vital Signs - 24 hr 10/31/21 08:00 10/31/21 20:02 Temperature 98.4 F 97.4 F Pulse Rate 72 97 Respiratory Rate 18 Blood Pressure 112/59 L 130/68 Pulse Oximetry 97 67 L BMI result Body Mass Index 31.0 Medications Medications Current Medications Acetaminophen (Acetaminophen 325 Mg Tablet) 650 mg PO Q6H PRN PRN Reason: Headache/Pain Mild Scale (1-3) Al Hydroxide/Mg Hydroxide (Magnesium Hydrox/Alum Hydrox 30 Ml Oral.Susp) 30 ml PO Q6H PRN PRN Reason: Heartburn/Nausea Last Admin: 10/30/21 20:24 Dose: 30 ml Documented by: Aspirin (Aspirin Enteric Coated 81 Mg Tablet.) 81 mg PO DAILY [facility] Last Admin: 10/31/21 08:33 Dose: 81 mg Documented by: Atorvastatin Calcium (Atorvastatin Calcium 20 Mg Tablet) 20 mg PO BEDTIME [facility] Last Admin: 10/31/21 20:42 Dose: 20 mg Documented by: Divalproex Sodium (Divalproex Sodium Sprinkles 125 Mg ) 125 mg PO TID [facility] Last Admin: 10/31/21 20:42 Dose: 125 mg Documented by: Donepezil HCl (Donepezil Hcl 10 Mg Tablet) 10 mg PO DAILY [facility] Last Admin: 10/31/21 08:33 Dose: 10 mg Documented by: Famotidine (Famotidine 20 Mg Tablet) 20 mg PO DAILY [facility] Last Admin: 10/31/21 08:34 Dose: 20 mg Documented by: Fluoxetine HCl (Fluoxetine Hcl 20 Mg Capsule) 60 mg PO DAILY [facility] Last Admin: 10/31/21 08:33 Dose: 60 mg Documented by: Hydrochlorothiazide (Hydrochlorothiazide 12.5 Mg Tablet) 12.5 mg PO DAILY [facility] Last Admin: 10/31/21 08:33 Dose: 12.5 mg Documented by: Hydroxyzine HCl (Hydroxyzine Hcl 25 Mg Tablet) 25 mg PO Q6H PRN PRN Reason: Anxiety Levothyroxine Sodium (Levothyroxine Sodium 75 Mcg Tablet) 75 mcg PO DAILY [facility] Last Admin: 10/31/21 08:34 Dose: 75 mcg Documented by: Losartan Potassium (Losartan Potassium 50 Mg Tablet) 50 mg PO DAILY [facility] Last Admin: 10/31/21 08:33 Dose: 50 mg Documented by: Magnesium Hydroxide (Milk Of Magnesia 30 Ml Oral.Susp) 30 ml PO DAILY PRN PRN Reason: Constipation Sodium Chloride (Sodium Chloride 0.65 % Nasal 44 Ml Sprbtl) 1 spray NOSTRIL-B QID PRN PRN Reason: Allergy Symptoms Sodium Chloride (Sodium Chloride Tab 1 Gm Tablet) 1 gm PO DAILY [facility] Last Admin: 10/31/21 08:33 Dose: 1 gm Documented by: Trazodone HCl (Trazodone Hcl 50 Mg Tablet) 50 mg PO BEDTIME PRN PRN Reason: Insomnia Last Admin: 10/29/21 21:26 Dose: 50 mg Documented by: Trazodone HCl (Trazodone Hcl 25 Mg Halftab) 25 mg PO TID PRN PRN Reason: Anxiety Last Admin: 10/25/21 20:31 Dose: 25 mg Documented by: Allergies Allergies Allergy/AdvReac Type Severity Reaction Status Date / Time iodine Allergy Intermediate Rash Verified 10/19/21 21:07 Assessment & Plan Assessment & Plan (1) Depressive disorder: Status: Acute Code(s): F32.A - Depression, unspecified (2) Dementia: Status: Inactive Code(s): F03.90 - Unspecified dementia without behavioral disturbance Plan The patient is an elderly female with a history of dementia transfer in from her assisted living facility for an episode of violence in the context of UTI. On admission, she has never been violent and she is pleasant and cooperative but looks confused. Some periods of irritability intrusiveness Continue fluoxetine Aricept Keep a low dose of Depakote to target mood lability. 3/4 no medication changes. 3/5 no med changes. I spent minutes with the patient and/or on the patient floor today, greater than?50% of which was spent counseling/coordinating care. Reason for contiued inpatient stay Substantial Risk for: inability to function
[2021-10-30 08:00] VITALS: BP 104/59; PULSE 72; TEMP 36.4; O2SAT 99
[2021-10-30] MEDS: Aspirin Enteric Coated 81 MG TABLET.DR PO (08:14)
[2021-10-30] MEDS: Losartan Potassium 50 MG TABLET PO (08:14)
[2021-10-30] MEDS: FLUoxetine HCl 20 MG CAPSULE 60 MG PO (08:14)
[2021-10-30] MEDS: Divalproex Sodium Sprinkles 125 MG CAP.DR.SPR PO ×3 (08:15→20:25)
[2021-10-30] MEDS: Donepezil HCl 10 MG TABLET PO (08:15)
[2021-10-30] MEDS: hydroCHLOROthiazide 12.5 MG TABLET PO (08:15)
[2021-10-30] MEDS: Sodium Chloride Tab 1 GM TABLET PO (08:15)
[2021-10-30] MEDS: Levothyroxine Sodium 75 MCG TABLET PO (10:12)
[2021-10-30] MEDS: Magnesium Hydrox/Alum Hydrox 30 ML ORAL.SUSP PO (20:24)
[2021-10-30] MEDS: Atorvastatin Calcium 20 MG TABLET PO (20:25)
--- NOTE | 2021-10-31 07:15 | P.PNPSI_ITS ---
Subjective Subjective Date of Service: 10/31/21 Reason For Visit: Unspecified dementia Subjective Notes: Conditional Voluntary Interim History: Pt not oriented to situation. Continues to present as pleasant, irritable at times but very briefly today. She reports mood being good. She denies SI/HI. She reports sleeping and eating well. Per nursing, pt visible in the unit, social with select peers, no behavioral concerns. taking medications as prescribed. Very social, trying to organized groups or social gathering with peers. Medication Compliance: Yes Side effects from medications: No Mental Status Exam Mental Status Exam Patient Appearance: Well Grooomed Patient Orientation: Person Level of Consciousness: Awake Patient Behavior: Cooperative Mood Description: Calm Affect Description: Constricted Patient Cognition Impaired: Yes Ability to Follow Directions: Good Speech Pattern: Clear Memory Description: Intact Diagnostics Vital Signs (24Hr): Vital Signs - 24 hr 10/31/21 08:00 10/31/21 20:02 Temperature 98.4 F 97.4 F Pulse Rate 72 97 Respiratory Rate 18 Blood Pressure 112/59 L 130/68 Pulse Oximetry 97 67 L BMI result Body Mass Index 31.0 Medications Medications Current Medications Acetaminophen (Acetaminophen 325 Mg Tablet) 650 mg PO Q6H PRN PRN Reason: Headache/Pain Mild Scale (1-3) Al Hydroxide/Mg Hydroxide (Magnesium Hydrox/Alum Hydrox 30 Ml Oral.Susp) 30 ml PO Q6H PRN PRN Reason: Heartburn/Nausea Last Admin: 10/30/21 20:24 Dose: 30 ml Documented by: Aspirin (Aspirin Enteric Coated 81 Mg Jaleel.) 81 mg PO DAILY [facility] Last Admin: 10/31/21 08:33 Dose: 81 mg Documented by: Atorvastatin Calcium (Atorvastatin Calcium 20 Mg Tablet) 20 mg PO BEDTIME [facility] Last Admin: 10/31/21 20:42 Dose: 20 mg Documented by: Divalproex Sodium (Divalproex Sodium Sprinkles 125 Mg ) 125 mg PO TID [facility] Last Admin: 10/31/21 20:42 Dose: 125 mg Documented by: Donepezil HCl (Donepezil Hcl 10 Mg Tablet) 10 mg PO DAILY [facility] Last Admin: 10/31/21 08:33 Dose: 10 mg Documented by: Famotidine (Famotidine 20 Mg Tablet) 20 mg PO DAILY [facility] Last Admin: 10/31/21 08:34 Dose: 20 mg Documented by: Fluoxetine HCl (Fluoxetine Hcl 20 Mg Capsule) 60 mg PO DAILY [facility] Last Admin: 10/31/21 08:33 Dose: 60 mg Documented by: Hydrochlorothiazide (Hydrochlorothiazide 12.5 Mg Tablet) 12.5 mg PO DAILY [facility] Last Admin: 10/31/21 08:33 Dose: 12.5 mg Documented by: Hydroxyzine HCl (Hydroxyzine Hcl 25 Mg Tablet) 25 mg PO Q6H PRN PRN Reason: Anxiety Levothyroxine Sodium (Levothyroxine Sodium 75 Mcg Tablet) 75 mcg PO DAILY [facility] Last Admin: 10/31/21 08:34 Dose: 75 mcg Documented by: Losartan Potassium (Losartan Potassium 50 Mg Tablet) 50 mg PO DAILY [facility] Last Admin: 10/31/21 08:33 Dose: 50 mg Documented by: Magnesium Hydroxide (Milk Of Magnesia 30 Ml Oral.Susp) 30 ml PO DAILY PRN PRN Reason: Constipation Sodium Chloride (Sodium Chloride 0.65 % Nasal 44 Ml Sprbtl) 1 spray NOSTRIL-B QID PRN PRN Reason: Allergy Symptoms Sodium Chloride (Sodium Chloride Tab 1 Gm Tablet) 1 gm PO DAILY [facility] Last Admin: 10/31/21 08:33 Dose: 1 gm Documented by: Trazodone HCl (Trazodone Hcl 50 Mg Tablet) 50 mg PO BEDTIME PRN PRN Reason: Insomnia Last Admin: 10/29/21 21:26 Dose: 50 mg Documented by: Trazodone HCl (Trazodone Hcl 25 Mg Halftab) 25 mg PO TID PRN PRN Reason: Anxiety Last Admin: 10/25/21 20:31 Dose: 25 mg Documented by: Allergies Allergies Allergy/AdvReac Type Severity Reaction Status Date / Time iodine Allergy Intermediate Rash Verified 10/19/21 21:07 Assessment & Plan Assessment & Plan (1) Depressive disorder: Status: Acute Code(s): F32.A - Depression, unspecified (2) Dementia: Status: Inactive Code(s): F03.90 - Unspecified dementia without behavioral disturbance Plan The patient is an elderly female with a history of dementia transfer in from her assisted living facility for an episode of violence in the context of UTI. On admission, she has never been violent and she is pleasant and cooperative but looks confused. Some periods of irritability intrusiveness Continue fluoxetine Aricept Keep a low dose of Depakote to target mood lability. 4 no medication changes. 10/30 no med changes. 10/31- no changes I spent minutes with the patient and/or on the patient floor today, greater than?50% of which was spent counseling/coordinating care. Reason for contiued inpatient stay Substantial Risk for: inability to function
[2021-10-31 08:00] VITALS: BP 112/59; PULSE 72; TEMP 36.9; O2SAT 97
[2021-10-31] MEDS: hydroCHLOROthiazide 12.5 MG TABLET PO (08:33)
[2021-10-31] MEDS: Losartan Potassium 50 MG TABLET PO (08:33)
[2021-10-31] MEDS: Donepezil HCl 10 MG TABLET PO (08:33)
[2021-10-31] MEDS: Sodium Chloride Tab 1 GM TABLET PO (08:33)
[2021-10-31] MEDS: Aspirin Enteric Coated 81 MG TABLET.DR PO (08:33)
[2021-10-31] MEDS: FLUoxetine HCl 20 MG CAPSULE 60 MG PO (08:33)
[2021-10-31] MEDS: Levothyroxine Sodium 75 MCG TABLET PO (08:34)
[2021-10-31] MEDS: Famotidine 20 MG TABLET PO (08:34)
[2021-10-31] MEDS: Divalproex Sodium Sprinkles 125 MG CAP.DR.SPR PO ×3 (08:34→20:42)
[2021-10-31 20:02] VITALS: BP 130/68; PULSE 97; RESP 18; TEMP 36.3; O2SAT 67
[2021-10-31] MEDS: Atorvastatin Calcium 20 MG TABLET PO (20:42)
[2021-11-01 08:00] VITALS: BP 118/71; PULSE 73; TEMP 36.1; O2SAT 95
[2021-11-01] MEDS: hydroCHLOROthiazide 12.5 MG TABLET PO (08:57)
[2021-11-01] MEDS: FLUoxetine HCl 20 MG CAPSULE 60 MG PO (08:58)
[2021-11-01] MEDS: Divalproex Sodium Sprinkles 125 MG CAP.DR.SPR PO ×3 (08:58→21:15)
[2021-11-01] MEDS: Sodium Chloride Tab 1 GM TABLET PO (08:58)
[2021-11-01] MEDS: Famotidine 20 MG TABLET PO (08:58)
[2021-11-01] MEDS: Donepezil HCl 10 MG TABLET PO (08:58)
[2021-11-01] MEDS: Levothyroxine Sodium 75 MCG TABLET PO (08:58)
[2021-11-01] MEDS: Losartan Potassium 50 MG TABLET PO (08:58)
[2021-11-01] MEDS: Aspirin Enteric Coated 81 MG TABLET.DR PO (08:58)
--- NOTE | 2021-11-01 12:31 | P.PNPSI_ITS ---
Subjective Subjective Date of Service: 11/01/21 Reason For Visit: Unspecified dementia Subjective Notes: Conditional Voluntary Interim History: Pt ambulating with walker. Pt reports sleeping eating well. Pt describes mood as good. She is irritable at time but briefly. She denies SI/HI. She is taking medications as prescribed. No VH/AH. Family in agreement to bring to facility with more supports. Medication Compliance: Yes Mental Status Exam Mental Status Exam Patient Appearance: Well Grooomed Patient Orientation: Person Level of Consciousness: Awake Patient Behavior: Cooperative Mood Description: Calm Affect Description: Constricted Patient Cognition Impaired: Yes Ability to Follow Directions: Good Speech Pattern: Clear Memory Description: Intact Diagnostics Vital Signs (24Hr): Vital Signs - 24 hr 11/04/21 19:00 11/05/21 08:00 Temperature 97 F 98.1 F Pulse Rate 100 70 Respiratory Rate 18 14 Blood Pressure 145/78 H 120/66 Pulse Oximetry 97 95 BMI result Body Mass Index 31.0 Labs Labs: Laboratory Results - last 48 hr 11/03/21 12:10 Urine RBC 1-4 Urine WBC 1-4 Ur Squamous Epith Cells 1+ Urine Bacteria NONE Urine Mucus 2+ Medications Medications Current Medications Acetaminophen (Acetaminophen 325 Mg Tablet) 650 mg PO Q6H PRN PRN Reason: Headache/Pain Mild Scale (1-3) Al Hydroxide/Mg Hydroxide (Magnesium Hydrox/Alum Hydrox 30 Ml Oral.Susp) 30 ml PO Q6H PRN PRN Reason: Heartburn/Nausea Last Admin: 10/30/21 20:24 Dose: 30 ml Documented by: Aspirin (Aspirin Enteric Coated 81 Mg Jaleel.) 81 mg PO DAILY [facility] Last Admin: 11/05/21 10:07 Dose: 81 mg Documented by: Atorvastatin Calcium (Atorvastatin Calcium 20 Mg Tablet) 20 mg PO BEDTIME [facility] Last Admin: 11/04/21 20:53 Dose: 20 mg Documented by: Divalproex Sodium (Divalproex Sodium Sprinkles 125 Mg ) 125 mg PO TID [facility] Last Admin: 11/05/21 10:08 Dose: 125 mg Documented by: Donepezil HCl (Donepezil Hcl 10 Mg Tablet) 10 mg PO DAILY [facility] Last Admin: 11/05/21 10:08 Dose: 10 mg Documented by: Famotidine (Famotidine 20 Mg Tablet) 20 mg PO DAILY [facility] Last Admin: 11/05/21 10:09 Dose: 20 mg Documented by: Fluoxetine HCl (Fluoxetine Hcl 20 Mg Capsule) 60 mg PO DAILY [facility] Last Admin: 11/05/21 10:07 Dose: 60 mg Documented by: Hydrochlorothiazide (Hydrochlorothiazide 12.5 Mg Tablet) 12.5 mg PO DAILY [facility] Last Admin: 11/05/21 10:08 Dose: 12.5 mg Documented by: Hydroxyzine HCl (Hydroxyzine Hcl 25 Mg Tablet) 25 mg PO Q6H PRN PRN Reason: Anxiety Levothyroxine Sodium (Levothyroxine Sodium 75 Mcg Tablet) 75 mcg PO DAILY [facility] Last Admin: 11/05/21 10:08 Dose: 75 mcg Documented by: Losartan Potassium (Losartan Potassium 50 Mg Tablet) 50 mg PO DAILY [facility] Last Admin: 11/05/21 10:08 Dose: 50 mg Documented by: Magnesium Hydroxide (Milk Of Magnesia 30 Ml Oral.Susp) 30 ml PO DAILY PRN PRN Reason: Constipation Sodium Chloride (Sodium Chloride 0.65 % Nasal 44 Ml Sprbtl) 1 spray NOSTRIL-B QID PRN PRN Reason: Allergy Symptoms Sodium Chloride (Sodium Chloride Tab 1 Gm Tablet) 1 gm PO DAILY [facility] Last Admin: 11/05/21 10:09 Dose: 1 gm Documented by: Trazodone HCl (Trazodone Hcl 50 Mg Tablet) 50 mg PO BEDTIME PRN PRN Reason: Insomnia Last Admin: 11/04/21 20:56 Dose: 50 mg Documented by: Trazodone HCl (Trazodone Hcl 25 Mg Halftab) 25 mg PO TID PRN PRN Reason: Anxiety Last Admin: 10/25/21 20:31 Dose: 25 mg Documented by: Allergies Allergies Allergy/AdvReac Type Severity Reaction Status Date / Time iodine Allergy Intermediate Rash Verified 10/19/21 21:07 Assessment & Plan Assessment & Plan (1) MDD (major depressive disorder), recurrent episode, moderate: Status: Acute Code(s): F33.1 - Major depressive disorder, recurrent, moderate (2) Dementia: Status: Inactive Code(s): F03.90 - Unspecified dementia without behavioral disturbance (3) Major neurocognitive disorder: Status: Acute Code(s): F03.90 - Unspecified dementia without behavioral disturbance Plan The patient is an elderly female with a history of dementia transfer in from her assisted living facility for an episode of violence in the context of UTI. On admission, she has never been violent and she is pleasant and cooperative but looks confused. Some periods of irritability intrusiveness Continue fluoxetine Aricept Keep a low dose of Depakote to target mood lability. 3/4 no medication changes. 3/ no med changes. 10/31- no changes 11/01 continue current medications. I spent minutes with the patient and/or on the patient floor today, greater than?50% of which was spent counseling/coordinating care. Reason for contiued inpatient stay Substantial Risk for: inability to function
[2021-11-01] MEDS: Atorvastatin Calcium 20 MG TABLET PO (21:15)
[2021-11-01 21:52] VITALS: BP 120/69; PULSE 70; RESP 16; TEMP 36.3; O2SAT 99
[2021-11-02 07:30] VITALS: BP 155/70; PULSE 64; RESP 16; TEMP 36.4; O2SAT 98
[2021-11-02] MEDS: Donepezil HCl 10 MG TABLET PO (09:03)
[2021-11-02] MEDS: Losartan Potassium 50 MG TABLET PO (09:03)
[2021-11-02] MEDS: Levothyroxine Sodium 75 MCG TABLET PO (09:03)
[2021-11-02] MEDS: hydroCHLOROthiazide 12.5 MG TABLET PO (09:03)
[2021-11-02] MEDS: Aspirin Enteric Coated 81 MG TABLET.DR PO (09:03)
[2021-11-02] MEDS: Sodium Chloride Tab 1 GM TABLET PO (09:03)
[2021-11-02] MEDS: Famotidine 20 MG TABLET PO (09:03)
[2021-11-02] MEDS: FLUoxetine HCl 20 MG CAPSULE 60 MG PO (09:03)
[2021-11-02] MEDS: Divalproex Sodium Sprinkles 125 MG CAP.DR.SPR PO ×3 (09:03→21:01)
--- NOTE | 2021-11-02 12:41 | HO.PSYCHPN ---
Subjective Subjective Date of Service: 11/02/21 Reason For Visit: Unspecified dementia Subjective Notes: Conditional Voluntary Interim History: Pt ambulating with walker independently. No falls. Pt sitting with peers in round table. She is seen laughing, at times seems to misunderstand context of others conversation and gets frustrated for unclear reason. Although she agrees to go to facility with more supports thinks she could live independently. Pt describes mood as good Less episodes of irritability. She denies SI/HI. She is taking medications as prescribed. No VH/AH. Family in agreement to bring to facility with more supports. Mental Status Exam Mental Status Exam Patient Appearance: Well Grooomed Patient Orientation: Person Level of Consciousness: Awake Patient Behavior: Cooperative Mood Description: Calm Affect Description: Constricted Patient Cognition Impaired: Yes Ability to Follow Directions: Good Speech Pattern: Clear Memory Description: Intact Diagnostics Vital Signs (24Hr): Vital Signs - 24 hr 11/04/21 19:00 11/05/21 08:00 Temperature 97 F 98.1 F Pulse Rate 100 70 Respiratory Rate 18 14 Blood Pressure 145/78 H 120/66 Pulse Oximetry 97 95 BMI result Body Mass Index 31.0 Medications Medications Current Medications Acetaminophen (Acetaminophen 325 Mg Tablet) 650 mg PO Q6H PRN PRN Reason: Headache/Pain Mild Scale (1-3) Al Hydroxide/Mg Hydroxide (Magnesium Hydrox/Alum Hydrox 30 Ml Oral.Susp) 30 ml PO Q6H PRN PRN Reason: Heartburn/Nausea Last Admin: 10/30/21 20:24 Dose: 30 ml Documented by: Aspirin (Aspirin Enteric Coated 81 Mg Tablet.) 81 mg PO DAILY [facility] Last Admin: 11/05/21 10:07 Dose: 81 mg Documented by: Atorvastatin Calcium (Atorvastatin Calcium 20 Mg Tablet) 20 mg PO BEDTIME [facility] Last Admin: 11/04/21 20:53 Dose: 20 mg Documented by: Divalproex Sodium (Divalproex Sodium Sprinkles 125 Mg ) 125 mg PO TID [facility] Last Admin: 11/05/21 10:08 Dose: 125 mg Documented by: Donepezil HCl (Donepezil Hcl 10 Mg Tablet) 10 mg PO DAILY [facility] Last Admin: 11/05/21 10:08 Dose: 10 mg Documented by: Famotidine (Famotidine 20 Mg Tablet) 20 mg PO DAILY [facility] Last Admin: 11/05/21 10:09 Dose: 20 mg Documented by: Fluoxetine HCl (Fluoxetine Hcl 20 Mg Capsule) 60 mg PO DAILY [facility] Last Admin: 11/05/21 10:07 Dose: 60 mg Documented by: Hydrochlorothiazide (Hydrochlorothiazide 12.5 Mg Tablet) 12.5 mg PO DAILY [facility] Last Admin: 11/05/21 10:08 Dose: 12.5 mg Documented by: Hydroxyzine HCl (Hydroxyzine Hcl 25 Mg Tablet) 25 mg PO Q6H PRN PRN Reason: Anxiety Levothyroxine Sodium (Levothyroxine Sodium 75 Mcg Tablet) 75 mcg PO DAILY [facility] Last Admin: 11/05/21 10:08 Dose: 75 mcg Documented by: Losartan Potassium (Losartan Potassium 50 Mg Tablet) 50 mg PO DAILY [facility] Last Admin: 11/05/21 10:08 Dose: 50 mg Documented by: Magnesium Hydroxide (Milk Of Magnesia 30 Ml Oral.Susp) 30 ml PO DAILY PRN PRN Reason: Constipation Sodium Chloride (Sodium Chloride 0.65 % Nasal 44 Ml Sprbtl) 1 spray NOSTRIL-B QID PRN PRN Reason: Allergy Symptoms Sodium Chloride (Sodium Chloride Tab 1 Gm Tablet) 1 gm PO DAILY [facility] Last Admin: 11/05/21 10:09 Dose: 1 gm Documented by: Trazodone HCl (Trazodone Hcl 50 Mg Tablet) 50 mg PO BEDTIME PRN PRN Reason: Insomnia Last Admin: 11/04/21 20:56 Dose: 50 mg Documented by: Trazodone HCl (Trazodone Hcl 25 Mg Halftab) 25 mg PO TID PRN PRN Reason: Anxiety Last Admin: 10/25/21 20:31 Dose: 25 mg Documented by: Allergies Allergies Allergy/AdvReac Type Severity Reaction Status Date / Time iodine Allergy Intermediate Rash Verified 10/19/21 21:07 Assessment & Plan Assessment & Plan (1) MDD (major depressive disorder), recurrent episode, moderate: Status: Acute Code(s): F33.1 - Major depressive disorder, recurrent, moderate (2) Dementia: Status: Inactive Code(s): F03.90 - Unspecified dementia without behavioral disturbance (3) Major neurocognitive disorder: Status: Acute Code(s): F03.90 - Unspecified dementia without behavioral disturbance Plan The patient is an elderly female with a history of dementia transfer in from her assisted living facility for an episode of violence in the context of UTI. On admission, she has never been violent and she is pleasant and cooperative but looks confused. Some periods of irritability intrusiveness Continue fluoxetine Aricept Keep a low dose of Depakote to target mood lability. 3/4 no medication changes. 3 no med changes. 10/31- no changes 11/01 continue current medications. 11/02 check depakote level, may adjust dose to decrease some irritability. I spent minutes with the patient and/or on the patient floor today, greater than?50% of which was spent counseling/coordinating care. Reason for contiued inpatient stay Substantial Risk for: inability to function
[2021-11-02] MEDS: Atorvastatin Calcium 20 MG TABLET PO (21:01)
[2021-11-02 21:47] VITALS: BP 135/79; PULSE 65; RESP 19; TEMP 36.6; O2SAT 96
[2021-11-03 06:00] VITALS: BP 148/71; PULSE 68; RESP 14; TEMP 36.9; O2SAT 93
[2021-11-03] MEDS: FLUoxetine HCl 20 MG CAPSULE 60 MG PO (08:13)
[2021-11-03] MEDS: Divalproex Sodium Sprinkles 125 MG CAP.DR.SPR PO ×3 (08:14→20:01)
[2021-11-03] MEDS: Famotidine 20 MG TABLET PO (08:14)
[2021-11-03] MEDS: Donepezil HCl 10 MG TABLET PO (08:14)
[2021-11-03] MEDS: hydroCHLOROthiazide 12.5 MG TABLET PO (08:14)
[2021-11-03] MEDS: Aspirin Enteric Coated 81 MG TABLET.DR PO (08:14)
[2021-11-03] MEDS: Losartan Potassium 50 MG TABLET PO (08:14)
[2021-11-03] MEDS: Sodium Chloride Tab 1 GM TABLET PO (08:14)
[2021-11-03] MEDS: Levothyroxine Sodium 75 MCG TABLET PO (08:14)
[2021-11-03 12:19] LABS: Appearance Urine HAZY; Color Urine YELLOW; Glucose Urine UA NEG (NEG); Leukocyte Esterase Urine TRACE (NEG); Nitrite Urine NEG (NEG); UACC Culture Trigger YES; Urine Blood NEG (NEG); Urine Ketones 15 MG/DL (NEG); Urine Protein NEG (NEG-TRACE)
--- NOTE | 2021-11-03 12:35 | P.PNPSI_ITS ---
Subjective Subjective Date of Service: 11/02/21 Reason For Visit: Unspecified dementia Subjective Notes: Conditional Voluntary Interim History: Pt ambulating with walker independently. No falls. Pt reports sleeping, eating well- confirmed by nursing. Pt describes mood as good Less episodes of irritability. She denies SI/HI. She is taking medications as prescribed. No VH/AH. Family in agreement to bring to facility with more supports. Pt upset when discussing supports needed [place] cognitive impairments. Medication Compliance: Yes Side effects from medications: No Mental Status Exam Mental Status Exam Patient Appearance: Well Grooomed Patient Orientation: Person Level of Consciousness: Awake Patient Behavior: Cooperative Mood Description: Calm Affect Description: Constricted Patient Cognition Impaired: Yes Ability to Follow Directions: Good Speech Pattern: Clear Memory Description: Intact Diagnostics Vital Signs (24Hr): Vital Signs - 24 hr 11/04/21 19:00 11/05/21 08:00 Temperature 97 F 98.1 F Pulse Rate 100 70 Respiratory Rate 18 14 Blood Pressure 145/78 H 120/66 Pulse Oximetry 97 95 BMI result Body Mass Index 31.0 Labs Labs: Laboratory Results - last 48 hr 11/03/21 12:10 Urine RBC 1-4 Urine WBC 1-4 Ur Squamous Epith Cells 1+ Urine Bacteria NONE Urine Mucus 2+ Medications Medications Current Medications Acetaminophen (Acetaminophen 325 Mg Tablet) 650 mg PO Q6H PRN PRN Reason: Headache/Pain Mild Scale (1-3) Al Hydroxide/Mg Hydroxide (Magnesium Hydrox/Alum Hydrox 30 Ml Oral.Susp) 30 ml PO Q6H PRN PRN Reason: Heartburn/Nausea Last Admin: 10/30/21 20:24 Dose: 30 ml Documented by: Aspirin (Aspirin Enteric Coated 81 Mg Jaleel.) 81 mg PO DAILY [facility] Last Admin: 11/05/21 10:07 Dose: 81 mg Documented by: Atorvastatin Calcium (Atorvastatin Calcium 20 Mg Tablet) 20 mg PO BEDTIME [facility] Last Admin: 11/04/21 20:53 Dose: 20 mg Documented by: Divalproex Sodium (Divalproex Sodium Sprinkles 125 Mg Cap) 125 mg PO TID [facility] Last Admin: 11/05/21 10:08 Dose: 125 mg Documented by: Donepezil HCl (Donepezil Hcl 10 Mg Tablet) 10 mg PO DAILY [facility] Last Admin: 11/05/21 10:08 Dose: 10 mg Documented by: Famotidine (Famotidine 20 Mg Tablet) 20 mg PO DAILY [facility] Last Admin: 11/05/21 10:09 Dose: 20 mg Documented by: Fluoxetine HCl (Fluoxetine Hcl 20 Mg Capsule) 60 mg PO DAILY [facility] Last Admin: 11/05/21 10:07 Dose: 60 mg Documented by: Hydrochlorothiazide (Hydrochlorothiazide 12.5 Mg Tablet) 12.5 mg PO DAILY [facility] Last Admin: 11/05/21 10:08 Dose: 12.5 mg Documented by: Hydroxyzine HCl (Hydroxyzine Hcl 25 Mg Tablet) 25 mg PO Q6H PRN PRN Reason: Anxiety Levothyroxine Sodium (Levothyroxine Sodium 75 Mcg Tablet) 75 mcg PO DAILY [facility] Last Admin: 11/05/21 10:08 Dose: 75 mcg Documented by: Losartan Potassium (Losartan Potassium 50 Mg Tablet) 50 mg PO DAILY [facility] Last Admin: 11/05/21 10:08 Dose: 50 mg Documented by: Magnesium Hydroxide (Milk Of Magnesia 30 Ml Oral.Susp) 30 ml PO DAILY PRN PRN Reason: Constipation Sodium Chloride (Sodium Chloride 0.65 % Nasal 44 Ml Sprbtl) 1 spray NOSTRIL-B QID PRN PRN Reason: Allergy Symptoms Sodium Chloride (Sodium Chloride Tab 1 Gm Tablet) 1 gm PO DAILY [facility] Last Admin: 11/05/21 10:09 Dose: 1 gm Documented by: Trazodone HCl (Trazodone Hcl 50 Mg Tablet) 50 mg PO BEDTIME PRN PRN Reason: Insomnia Last Admin: 11/04/21 20:56 Dose: 50 mg Documented by: Trazodone HCl (Trazodone Hcl 25 Mg Halftab) 25 mg PO TID PRN PRN Reason: Anxiety Last Admin: 10/25/21 20:31 Dose: 25 mg Documented by: Allergies Allergies Allergy/AdvReac Type Severity Reaction Status Date / Time iodine Allergy Intermediate Rash Verified 10/19/21 21:07 Assessment & Plan Assessment & Plan (1) MDD (major depressive disorder), recurrent episode, moderate: Status: Acute Code(s): F33.1 - Major depressive disorder, recurrent, moderate (2) Dementia: Status: Inactive Code(s): F03.90 - Unspecified dementia without behavioral disturbance (3) Major neurocognitive disorder: Status: Acute Code(s): F03.90 - Unspecified dementia without behavioral disturbance Plan The patient is an elderly female with a history of dementia transfer in from her assisted living facility for an episode of violence in the context of UTI. On admission, she has never been violent and she is pleasant and cooperative but looks confused. Some periods of irritability intrusiveness Continue fluoxetine Aricept Keep a low dose of Depakote to target mood lability. 3/4 no medication changes. 3 no med changes. 10/31- no changes 11/01 continue current medications. 11/02 check depakote level, may adjust dose to decrease some irritability. I spent minutes with the patient and/or on the patient floor today, greater than?50% of which was spent counseling/coordinating care. Reason for contiued inpatient stay Substantial Risk for: inability to function
[2021-11-03 12:36] LABS: Mucus Urine 2+ /LPF; Squamous Epithelial Cell Urine 1+ /LPF
[2021-11-03] MEDS: Atorvastatin Calcium 20 MG TABLET PO (20:01)
[2021-11-03 20:48] VITALS: BP 123/84; PULSE 63; RESP 16; TEMP 36.4; O2SAT 99
[2021-11-04 06:00] VITALS: BP 146/78; PULSE 82; RESP 18; TEMP 37.2; O2SAT 98
[2021-11-04 07:00] VITALS: BMI 30.2
[2021-11-04] MEDS: Losartan Potassium 50 MG TABLET PO (09:03)
[2021-11-04] MEDS: FLUoxetine HCl 20 MG CAPSULE 60 MG PO (09:03)
[2021-11-04] MEDS: Aspirin Enteric Coated 81 MG TABLET.DR PO (09:03)
[2021-11-04] MEDS: Divalproex Sodium Sprinkles 125 MG CAP.DR.SPR PO ×3 (09:03→20:53)
[2021-11-04] MEDS: Sodium Chloride Tab 1 GM TABLET PO (09:03)
[2021-11-04] MEDS: Donepezil HCl 10 MG TABLET PO (09:03)
[2021-11-04] MEDS: Levothyroxine Sodium 75 MCG TABLET PO (09:03)
[2021-11-04] MEDS: Famotidine 20 MG TABLET PO (09:03)
[2021-11-04] MEDS: hydroCHLOROthiazide 12.5 MG TABLET PO (09:03)
--- NOTE | 2021-11-04 12:38 | HO.PSYCHPN ---
Subjective Subjective Date of Service: 11/04/21 Reason For Visit: Unspecified dementia Subjective Notes: Conditional Voluntary Interim History: Pt ambulating with walker independently. No falls. Pt talks about her son and how supportive he is. Although she agrees to go to facility with more supports thinks she could live independently. Pt describes mood as good Less episodes of irritability. She denies SI/HI. She is taking medications as prescribed. No VH/AH. Family in agreement to bring to facility with more supports. Mental Status Exam Mental Status Exam Patient Appearance: Well Grooomed Patient Orientation: Person Level of Consciousness: Awake Patient Behavior: Cooperative Mood Description: Calm Affect Description: Constricted Patient Cognition Impaired: Yes Ability to Follow Directions: Good Speech Pattern: Clear Memory Description: Intact Diagnostics Vital Signs (24Hr): Vital Signs - 24 hr 11/04/21 19:00 11/05/21 08:00 Temperature 97 F 98.1 F Pulse Rate 100 70 Respiratory Rate 18 14 Blood Pressure 145/78 H 120/66 Pulse Oximetry 97 95 BMI result Body Mass Index 31.0 Medications Medications Current Medications Acetaminophen (Acetaminophen 325 Mg Tablet) 650 mg PO Q6H PRN PRN Reason: Headache/Pain Mild Scale (1-3) Al Hydroxide/Mg Hydroxide (Magnesium Hydrox/Alum Hydrox 30 Ml Oral.Susp) 30 ml PO Q6H PRN PRN Reason: Heartburn/Nausea Last Admin: 10/30/21 20:24 Dose: 30 ml Documented by: Aspirin (Aspirin Enteric Coated 81 Mg Tablet.) 81 mg PO DAILY [facility] Last Admin: 11/05/21 10:07 Dose: 81 mg Documented by: Atorvastatin Calcium (Atorvastatin Calcium 20 Mg Tablet) 20 mg PO BEDTIME [facility] Last Admin: 11/04/21 20:53 Dose: 20 mg Documented by: Divalproex Sodium (Divalproex Sodium Sprinkles 125 Mg Cap) 125 mg PO TID [facility] Last Admin: 11/05/21 10:08 Dose: 125 mg Documented by: Donepezil HCl (Donepezil Hcl 10 Mg Tablet) 10 mg PO DAILY [facility] Last Admin: 11/05/21 10:08 Dose: 10 mg Documented by: Famotidine (Famotidine 20 Mg Tablet) 20 mg PO DAILY [facility] Last Admin: 11/05/21 10:09 Dose: 20 mg Documented by: Fluoxetine HCl (Fluoxetine Hcl 20 Mg Capsule) 60 mg PO DAILY [facility] Last Admin: 11/05/21 10:07 Dose: 60 mg Documented by: Hydrochlorothiazide (Hydrochlorothiazide 12.5 Mg Tablet) 12.5 mg PO DAILY [facility] Last Admin: 11/05/21 10:08 Dose: 12.5 mg Documented by: Hydroxyzine HCl (Hydroxyzine Hcl 25 Mg Tablet) 25 mg PO Q6H PRN PRN Reason: Anxiety Levothyroxine Sodium (Levothyroxine Sodium 75 Mcg Tablet) 75 mcg PO DAILY [facility] Last Admin: 11/05/21 10:08 Dose: 75 mcg Documented by: Losartan Potassium (Losartan Potassium 50 Mg Tablet) 50 mg PO DAILY [facility] Last Admin: 11/05/21 10:08 Dose: 50 mg Documented by: Magnesium Hydroxide (Milk Of Magnesia 30 Ml Oral.Susp) 30 ml PO DAILY PRN PRN Reason: Constipation Sodium Chloride (Sodium Chloride 0.65 % Nasal 44 Ml Sprbtl) 1 spray NOSTRIL-B QID PRN PRN Reason: Allergy Symptoms Sodium Chloride (Sodium Chloride Tab 1 Gm Tablet) 1 gm PO DAILY [facility] Last Admin: 11/05/21 10:09 Dose: 1 gm Documented by: Trazodone HCl (Trazodone Hcl 50 Mg Tablet) 50 mg PO BEDTIME PRN PRN Reason: Insomnia Last Admin: 11/04/21 20:56 Dose: 50 mg Documented by: Trazodone HCl (Trazodone Hcl 25 Mg Halftab) 25 mg PO TID PRN PRN Reason: Anxiety Last Admin: 10/25/21 20:31 Dose: 25 mg Documented by: Allergies Allergies Allergy/AdvReac Type Severity Reaction Status Date / Time iodine Allergy Intermediate Rash Verified 10/19/21 21:07 Assessment & Plan Assessment & Plan (1) MDD (major depressive disorder), recurrent episode, moderate: Status: Acute Code(s): F33.1 - Major depressive disorder, recurrent, moderate (2) Dementia: Status: Inactive Code(s): F03.90 - Unspecified dementia without behavioral disturbance (3) Major neurocognitive disorder: Status: Acute Code(s): F03.90 - Unspecified dementia without behavioral disturbance Plan The patient is an elderly female with a history of dementia transfer in from her assisted living facility for an episode of violence in the context of UTI. On admission, she has never been violent and she is pleasant and cooperative but looks confused. Some periods of irritability intrusiveness Continue fluoxetine Aricept Keep a low dose of Depakote to target mood lability. 3 no medication changes. 10/30 no med changes. 10/31- no changes 11/01 continue current medications. 11/02 check depakote level, may adjust dose to decrease some irritability. 11/03 continue current medications. I spent minutes with the patient and/or on the patient floor today, greater than?50% of which was spent counseling/coordinating care. Reason for contiued inpatient stay Substantial Risk for: inability to function
[2021-11-04 19:00] VITALS: BP 145/78; PULSE 100; RESP 18; TEMP 36.1; O2SAT 97
[2021-11-04] MEDS: Atorvastatin Calcium 20 MG TABLET PO (20:53)
[2021-11-04] MEDS: traZODone HCL 50 MG TABLET PO (20:56)
[2021-11-05 08:00] VITALS: BP 120/66; PULSE 70; RESP 14; TEMP 36.7; O2SAT 95
[2021-11-05] MEDS: Aspirin Enteric Coated 81 MG TABLET.DR PO (10:07)
[2021-11-05] MEDS: FLUoxetine HCl 20 MG CAPSULE 60 MG PO (10:07)
[2021-11-05] MEDS: Divalproex Sodium Sprinkles 125 MG CAP.DR.SPR PO ×3 (10:08→20:25)
[2021-11-05] MEDS: hydroCHLOROthiazide 12.5 MG TABLET PO (10:08)
[2021-11-05] MEDS: Levothyroxine Sodium 75 MCG TABLET PO (10:08)
[2021-11-05] MEDS: Donepezil HCl 10 MG TABLET PO (10:08)
[2021-11-05] MEDS: Losartan Potassium 50 MG TABLET PO (10:08)
[2021-11-05] MEDS: Sodium Chloride Tab 1 GM TABLET PO (10:09)
[2021-11-05] MEDS: Famotidine 20 MG TABLET PO (10:09)
--- NOTE | 2021-11-05 12:44 | HO.PSYCHPN ---
Subjective Subjective Date of Service: 11/05/21 Reason For Visit: Unspecified dementia Subjective Notes: Conditional Voluntary Interim History: Pt ambulating with walker independently. No falls. Pt sitting with peers in round table. She is social, less irritable. Per nursing she is sleeping and eating well. No SI/HI. She is taking medications as prescribed. No behavioral concerns. Medication Compliance: Yes Side effects from medications: No Mental Status Exam Mental Status Exam Patient Appearance: Well Grooomed Patient Orientation: Person Level of Consciousness: Awake Patient Behavior: Cooperative Mood Description: Calm Affect Description: Constricted Patient Cognition Impaired: Yes Ability to Follow Directions: Good Speech Pattern: Clear Memory Description: Intact Diagnostics Vital Signs (24Hr): Vital Signs - 24 hr 11/04/21 19:00 11/05/21 08:00 Temperature 97 F 98.1 F Pulse Rate 100 70 Respiratory Rate 18 14 Blood Pressure 145/78 H 120/66 Pulse Oximetry 97 95 BMI result Body Mass Index 31.0 Medications Medications Current Medications Acetaminophen (Acetaminophen 325 Mg Tablet) 650 mg PO Q6H PRN PRN Reason: Headache/Pain Mild Scale (1-3) Al Hydroxide/Mg Hydroxide (Magnesium Hydrox/Alum Hydrox 30 Ml Oral.Susp) 30 ml PO Q6H PRN PRN Reason: Heartburn/Nausea Last Admin: 10/30/21 20:24 Dose: 30 ml Documented by: Aspirin (Aspirin Enteric Coated 81 Mg Tablet.) 81 mg PO DAILY [facility] Last Admin: 11/05/21 10:07 Dose: 81 mg Documented by: Atorvastatin Calcium (Atorvastatin Calcium 20 Mg Tablet) 20 mg PO BEDTIME [facility] Last Admin: 11/04/21 20:53 Dose: 20 mg Documented by: Divalproex Sodium (Divalproex Sodium Sprinkles 125 Mg Cap) 125 mg PO TID [facility] Last Admin: 11/05/21 10:08 Dose: 125 mg Documented by: Donepezil HCl (Donepezil Hcl 10 Mg Tablet) 10 mg PO DAILY [facility] Last Admin: 11/05/21 10:08 Dose: 10 mg Documented by: Famotidine (Famotidine 20 Mg Tablet) 20 mg PO DAILY [facility] Last Admin: 11/05/21 10:09 Dose: 20 mg Documented by: Fluoxetine HCl (Fluoxetine Hcl 20 Mg Capsule) 60 mg PO DAILY [facility] Last Admin: 11/05/21 10:07 Dose: 60 mg Documented by: Hydrochlorothiazide (Hydrochlorothiazide 12.5 Mg Tablet) 12.5 mg PO DAILY [facility] Last Admin: 11/05/21 10:08 Dose: 12.5 mg Documented by: Hydroxyzine HCl (Hydroxyzine Hcl 25 Mg Tablet) 25 mg PO Q6H PRN PRN Reason: Anxiety Levothyroxine Sodium (Levothyroxine Sodium 75 Mcg Tablet) 75 mcg PO DAILY [facility] Last Admin: 11/05/21 10:08 Dose: 75 mcg Documented by: Losartan Potassium (Losartan Potassium 50 Mg Tablet) 50 mg PO DAILY [facility] Last Admin: 11/05/21 10:08 Dose: 50 mg Documented by: Magnesium Hydroxide (Milk Of Magnesia 30 Ml Oral.Susp) 30 ml PO DAILY PRN PRN Reason: Constipation Sodium Chloride (Sodium Chloride 0.65 % Nasal 44 Ml Sprbtl) 1 spray NOSTRIL-B QID PRN PRN Reason: Allergy Symptoms Sodium Chloride (Sodium Chloride Tab 1 Gm Tablet) 1 gm PO DAILY [facility] Last Admin: 11/05/21 10:09 Dose: 1 gm Documented by: Trazodone HCl (Trazodone Hcl 50 Mg Tablet) 50 mg PO BEDTIME PRN PRN Reason: Insomnia Last Admin: 11/04/21 20:56 Dose: 50 mg Documented by: Trazodone HCl (Trazodone Hcl 25 Mg Halftab) 25 mg PO TID PRN PRN Reason: Anxiety Last Admin: 10/25/21 20:31 Dose: 25 mg Documented by: Allergies Allergies Allergy/AdvReac Type Severity Reaction Status Date / Time iodine Allergy Intermediate Rash Verified 10/19/21 21:07 Assessment & Plan Assessment & Plan (1) MDD (major depressive disorder), recurrent episode, moderate: Status: Acute Code(s): F33.1 - Major depressive disorder, recurrent, moderate (2) Dementia: Status: Inactive Code(s): F03.90 - Unspecified dementia without behavioral disturbance (3) Major neurocognitive disorder: Status: Acute Code(s): F03.90 - Unspecified dementia without behavioral disturbance Plan The patient is an elderly female with a history of dementia transfer in from her assisted living facility for an episode of violence in the context of UTI. On admission, she has never been violent and she is pleasant and cooperative but looks confused. Some periods of irritability intrusiveness Continue fluoxetine Aricept Keep a low dose of Depakote to target mood lability. 3/ no medication changes. 10/30 no med changes. 10/31- no changes 11/01 continue current medications. 11/02 check depakote level, may adjust dose to decrease some irritability. I spent minutes with the patient and/or on the patient floor today, greater than?50% of which was spent counseling/coordinating care. Reason for contiued inpatient stay Substantial Risk for: inability to function
[2021-11-05] MEDS: Atorvastatin Calcium 20 MG TABLET PO (20:25)
[2021-11-05] MEDS: traZODone HCL 50 MG TABLET PO (20:26)
[2021-11-05 21:38] VITALS: BP 101/54; PULSE 71; RESP 16; TEMP 36.4; O2SAT 96
[2021-11-06 07:50] VITALS: BP 115/56; PULSE 60; RESP 14; TEMP 36.2; O2SAT 97
[2021-11-06] MEDS: FLUoxetine HCl 20 MG CAPSULE 60 MG PO (09:06)
[2021-11-06] MEDS: Famotidine 20 MG TABLET PO (09:06)
[2021-11-06] MEDS: Divalproex Sodium Sprinkles 125 MG CAP.DR.SPR PO ×3 (09:06→20:16)
[2021-11-06] MEDS: Aspirin Enteric Coated 81 MG TABLET.DR PO (09:07)
[2021-11-06] MEDS: Losartan Potassium 50 MG TABLET PO (09:07)
[2021-11-06] MEDS: hydroCHLOROthiazide 12.5 MG TABLET PO (09:07)
[2021-11-06] MEDS: Sodium Chloride Tab 1 GM TABLET PO (09:07)
[2021-11-06] MEDS: Levothyroxine Sodium 75 MCG TABLET PO (09:07)
[2021-11-06] MEDS: Donepezil HCl 10 MG TABLET PO (09:07)
--- NOTE | 2021-11-06 19:13 | HO.PSYCHPN ---
Subjective Subjective Date of Service: 11/06/21 Reason For Visit: Unspecified dementia Medical Problems Affecting Mental Status: No Interim History: Pt ambulating with walker independently. No falls. Pt sitting with peers incommon area. She is social, less irritable. Per nursing she is sleeping and eating well. No SI/HI. She is taking medications as prescribed. No behavioral concerns. Medication Compliance: Yes Side effects from medications: No Attending Groups: Yes Review of Systems Acute medical concerns: No Review of Systems Review of Systems Yes all other systems are reviewed and are negative Mental Status Exam Mental Status Exam Patient Appearance: Well Grooomed Patient Orientation: Person Level of Consciousness: Awake Patient Behavior: Cooperative Mood Description: Calm Affect Description: Constricted Patient Cognition Impaired: Yes Ability to Follow Directions: Good Speech Pattern: Clear Memory Description: Intact Hallucinations: None Delusions: Not Present Thought Process: Intact Thought Content: positive for Intact Judgement: Fair Diagnostics Vital Signs (24Hr): Vital Signs - 24 hr 11/05/21 21:38 11/06/21 07:50 Temperature 97.5 F 97.1 F Pulse Rate 71 60 Respiratory Rate 16 14 Blood Pressure 101/54 L 115/56 L Pulse Oximetry 96 97 BMI result Body Mass Index 30.2 Medications Medications Current Medications Acetaminophen (Acetaminophen 325 Mg Tablet) 650 mg PO Q6H PRN PRN Reason: Headache/Pain Mild Scale (1-3) Al Hydroxide/Mg Hydroxide (Magnesium Hydrox/Alum Hydrox 30 Ml Oral.Susp) 30 ml PO Q6H PRN PRN Reason: Heartburn/Nausea Last Admin: 10/30/21 20:24 Dose: 30 ml Documented by: Aspirin (Aspirin Enteric Coated 81 Mg Jaleel.) 81 mg PO DAILY [facility] Last Admin: 11/06/21 09:07 Dose: 81 mg Documented by: Atorvastatin Calcium (Atorvastatin Calcium 20 Mg Tablet) 20 mg PO BEDTIME [facility] Last Admin: 11/05/21 20:25 Dose: 20 mg Documented by: Divalproex Sodium (Divalproex Sodium Sprinkles 125 Mg ) 125 mg PO TID [facility] Last Admin: 11/06/21 14:35 Dose: 125 mg Documented by: Donepezil HCl (Donepezil Hcl 10 Mg Tablet) 10 mg PO DAILY [facility] Last Admin: 11/06/21 09:07 Dose: 10 mg Documented by: Famotidine (Famotidine 20 Mg Tablet) 20 mg PO DAILY [facility] Last Admin: 11/06/21 09:06 Dose: 20 mg Documented by: Fluoxetine HCl (Fluoxetine Hcl 20 Mg Capsule) 60 mg PO DAILY [facility] Last Admin: 11/06/21 09:06 Dose: 60 mg Documented by: Hydrochlorothiazide (Hydrochlorothiazide 12.5 Mg Tablet) 12.5 mg PO DAILY [facility] Last Admin: 11/06/21 09:07 Dose: 12.5 mg Documented by: Hydroxyzine HCl (Hydroxyzine Hcl 25 Mg Tablet) 25 mg PO Q6H PRN PRN Reason: Anxiety Levothyroxine Sodium (Levothyroxine Sodium 75 Mcg Tablet) 75 mcg PO DAILY [facility] Last Admin: 11/06/21 09:07 Dose: 75 mcg Documented by: Losartan Potassium (Losartan Potassium 50 Mg Tablet) 50 mg PO DAILY [facility] Last Admin: 11/06/21 09:07 Dose: 50 mg Documented by: Magnesium Hydroxide (Milk Of Magnesia 30 Ml Oral.Susp) 30 ml PO DAILY PRN PRN Reason: Constipation Sodium Chloride (Sodium Chloride 0.65 % Nasal 44 Ml Sprbtl) 1 spray NOSTRIL-B QID PRN PRN Reason: Allergy Symptoms Sodium Chloride (Sodium Chloride Tab 1 Gm Tablet) 1 gm PO DAILY [facility] Last Admin: 11/06/21 09:07 Dose: 1 gm Documented by: Trazodone HCl (Trazodone Hcl 50 Mg Tablet) 50 mg PO BEDTIME PRN PRN Reason: Insomnia Last Admin: 11/05/21 20:26 Dose: 50 mg Documented by: Trazodone HCl (Trazodone Hcl 25 Mg Halftab) 25 mg PO TID PRN PRN Reason: Anxiety Last Admin: 10/25/21 20:31 Dose: 25 mg Documented by: Allergies Allergies Allergy/AdvReac Type Severity Reaction Status Date / Time iodine Allergy Intermediate Rash Verified 10/19/21 21:07 Assessment & Plan Assessment & Plan (1) MDD (major depressive disorder), recurrent episode, moderate: Status: Acute Code(s): F33.1 - Major depressive disorder, recurrent, moderate (2) Dementia: Status: Inactive Code(s): F03.90 - Unspecified dementia without behavioral disturbance (3) Major neurocognitive disorder: Status: Acute Code(s): F03.90 - Unspecified dementia without behavioral disturbance Plan The patient is an elderly female with a history of dementia transfer in from her assisted living facility for an episode of violence in the context of UTI. On admission, she has never been violent and she is pleasant and cooperative but looks confused. Some periods of irritability intrusiveness Continue fluoxetine Aricept Keep a low dose of Depakote to target mood lability. 11/06/21 no changes continue with current treatment plan I spent ____15__ minutes with the patient and/or on the patient floor today, greater than?50% of which was spent counseling/coordinating care. Patient educated on: therapeutic strategies Informed Consent: further education needed Reason for contiued inpatient stay Substantial Risk for: harm to self, inability to function and rapid decompensation
[2021-11-06 19:40] VITALS: BP 103/58; PULSE 64; RESP 15; TEMP 36.1; O2SAT 97
[2021-11-06] MEDS: Atorvastatin Calcium 20 MG TABLET PO (20:16)
[2021-11-07 07:06] LABS: COVID-19 Test Negative (Negative)
[2021-11-07 08:08] VITALS: BP 110/63; PULSE 68; RESP 18; TEMP 36.3; O2SAT 97
[2021-11-07] MEDS: Famotidine 20 MG TABLET PO (08:34)
[2021-11-07] MEDS: hydroCHLOROthiazide 12.5 MG TABLET PO (08:34)
[2021-11-07] MEDS: Levothyroxine Sodium 75 MCG TABLET PO (08:34)
[2021-11-07] MEDS: FLUoxetine HCl 20 MG CAPSULE 60 MG PO (08:34)
[2021-11-07] MEDS: Donepezil HCl 10 MG TABLET PO (08:34)
[2021-11-07] MEDS: Sodium Chloride Tab 1 GM TABLET PO (08:34)
[2021-11-07] MEDS: Losartan Potassium 50 MG TABLET PO (08:34)
[2021-11-07] MEDS: Aspirin Enteric Coated 81 MG TABLET.DR PO (08:34)
[2021-11-07] MEDS: Divalproex Sodium Sprinkles 125 MG CAP.DR.SPR PO ×3 (08:34→20:49)
--- NOTE | 2021-11-07 14:28 | P.PNPSI_ITS ---
Subjective Subjective Date of Service: 11/07/21 Reason For Visit: Unspecified dementia Interim History: Pt ambulating with walker independently. No falls. spending time in common area; attending groups. She is social, less irritable. Per nursing she is sleeping and eating well. No SI/HI. She is taking medications as prescribed. No behavioral concerns. Medication Compliance: Yes Side effects from medications: No Review of Systems Acute medical concerns: No Medical Review of Systems: unchanged Review of Systems Review of Systems no changes Yes all other systems are reviewed and are negative Mental Status Exam Mental Status Exam Patient Appearance: Well Grooomed Patient Orientation: Person Level of Consciousness: Awake Patient Behavior: Cooperative Mood Description: Calm Affect Description: Constricted Patient Cognition Impaired: Yes Ability to Follow Directions: Good Speech Pattern: Clear Memory Description: Intact Judgement: Fair Diagnostics Vital Signs (24Hr): Vital Signs - 24 hr 11/06/21 19:40 11/07/21 08:08 Temperature 97 F 97.3 F Pulse Rate 64 68 Respiratory Rate 15 18 Blood Pressure 103/58 L 110/63 Pulse Oximetry 97 97 BMI result Body Mass Index 30.2 Labs Labs: Laboratory Results - last 48 hr 11/07/21 06:30 COVID-19 ([facility]) Negative COVID-19 Clin Com See Note Medications Medications Current Medications Acetaminophen (Acetaminophen 325 Mg Tablet) 650 mg PO Q6H PRN PRN Reason: Headache/Pain Mild Scale (1-3) Al Hydroxide/Mg Hydroxide (Magnesium Hydrox/Alum Hydrox 30 Ml Oral.Susp) 30 ml PO Q6H PRN PRN Reason: Heartburn/Nausea Last Admin: 10/30/21 20:24 Dose: 30 ml Documented by: Aspirin (Aspirin Enteric Coated 81 Mg Jaleel.) 81 mg PO DAILY [facility] Last Admin: 11/07/21 08:34 Dose: 81 mg Documented by: Atorvastatin Calcium (Atorvastatin Calcium 20 Mg Tablet) 20 mg PO BEDTIME [facility] Last Admin: 11/06/21 20:16 Dose: 20 mg Documented by: Divalproex Sodium (Divalproex Sodium Sprinkles 125 Mg Cap) 125 mg PO TID [facility] Last Admin: 11/07/21 14:23 Dose: 125 mg Documented by: Donepezil HCl (Donepezil Hcl 10 Mg Tablet) 10 mg PO DAILY [facility] Last Admin: 11/07/21 08:34 Dose: 10 mg Documented by: Famotidine (Famotidine 20 Mg Tablet) 20 mg PO DAILY [facility] Last Admin: 11/07/21 08:34 Dose: 20 mg Documented by: Fluoxetine HCl (Fluoxetine Hcl 20 Mg Capsule) 60 mg PO DAILY [facility] Last Admin: 11/07/21 08:34 Dose: 60 mg Documented by: Hydrochlorothiazide (Hydrochlorothiazide 12.5 Mg Tablet) 12.5 mg PO DAILY [facility] Last Admin: 11/07/21 08:34 Dose: 12.5 mg Documented by: Hydroxyzine HCl (Hydroxyzine Hcl 25 Mg Tablet) 25 mg PO Q6H PRN PRN Reason: Anxiety Levothyroxine Sodium (Levothyroxine Sodium 75 Mcg Tablet) 75 mcg PO DAILY [facility] Last Admin: 11/07/21 08:34 Dose: 75 mcg Documented by: Losartan Potassium (Losartan Potassium 50 Mg Tablet) 50 mg PO DAILY [facility] Last Admin: 11/07/21 08:34 Dose: 50 mg Documented by: Magnesium Hydroxide (Milk Of Magnesia 30 Ml Oral.Susp) 30 ml PO DAILY PRN PRN Reason: Constipation Sodium Chloride (Sodium Chloride 0.65 % Nasal 44 Ml Sprbtl) 1 spray NOSTRIL-B QID PRN PRN Reason: Allergy Symptoms Sodium Chloride (Sodium Chloride Tab 1 Gm Tablet) 1 gm PO DAILY [facility] Last Admin: 11/07/21 08:34 Dose: 1 gm Documented by: Trazodone HCl (Trazodone Hcl 50 Mg Tablet) 50 mg PO BEDTIME PRN PRN Reason: Insomnia Last Admin: 11/05/21 20:26 Dose: 50 mg Documented by: Trazodone HCl (Trazodone Hcl 25 Mg Halftab) 25 mg PO TID PRN PRN Reason: Anxiety Last Admin: 10/25/21 20:31 Dose: 25 mg Documented by: Allergies Allergies Allergy/AdvReac Type Severity Reaction Status Date / Time iodine Allergy Intermediate Rash Verified 10/19/21 21:07 Assessment & Plan Assessment & Plan (1) MDD (major depressive disorder), recurrent episode, moderate: Status: Acute Code(s): F33.1 - Major depressive disorder, recurrent, moderate (2) Dementia: Status: Inactive Code(s): F03.90 - Unspecified dementia without behavioral disturbance (3) Major neurocognitive disorder: Status: Acute Code(s): F03.90 - Unspecified dementia without behavioral disturbance Plan The patient is an elderly female with a history of dementia transfer in from her assisted living facility for an episode of violence in the context of UTI. On admission, she has never been violent and she is pleasant and cooperative but looks confused. Some periods of irritability intrusiveness Continue fluoxetine Aricept Keep a low dose of Depakote to target mood lability. 11/06/21 no changes continue with current treatment plan 11/07/21- no changes continue current treatment plan I spent ___15___ minutes with the patient and/or on the patient floor today, greater than?50% of which was spent counseling/coordinating care. Patient educated on: diagnosis, medication risk/benefits and therapeutic strategies Informed Consent: further education needed Reason for contiued inpatient stay Substantial Risk for: harm to self, inability to function and rapid decompensation
[2021-11-07] MEDS: Atorvastatin Calcium 20 MG TABLET PO (20:49)
[2021-11-07 21:03] VITALS: BP 107/54; PULSE 58; RESP 18; TEMP 35.6; O2SAT 99
[2021-11-08 08:00] VITALS: BP 124/84; PULSE 66; RESP 16; TEMP 36; O2SAT 98
[2021-11-08] MEDS: hydroCHLOROthiazide 12.5 MG TABLET PO (09:29)
[2021-11-08] MEDS: Donepezil HCl 10 MG TABLET PO (09:29)
[2021-11-08] MEDS: Divalproex Sodium Sprinkles 125 MG CAP.DR.SPR PO ×3 (09:29→20:34)
[2021-11-08] MEDS: Levothyroxine Sodium 75 MCG TABLET PO (09:29)
[2021-11-08] MEDS: Aspirin Enteric Coated 81 MG TABLET.DR PO (09:29)
[2021-11-08] MEDS: Sodium Chloride Tab 1 GM TABLET PO (09:29)
[2021-11-08] MEDS: Famotidine 20 MG TABLET PO (09:30)
[2021-11-08] MEDS: Losartan Potassium 50 MG TABLET PO (09:30)
[2021-11-08] MEDS: FLUoxetine HCl 20 MG CAPSULE 60 MG PO (09:30)
--- NOTE | 2021-11-08 12:56 | P.PNPSI_ITS ---
Subjective Subjective Date of Service: 11/08/21 Reason For Visit: Unspecified dementia Subjective Notes: Conditional Voluntary Interim History: The nursing staff reported the patient had been alert and oriented x3, she is insightful into her condition and she had been fully compliant with treatment. The social scientist has talked with the family and apparently the son has already arranged transfer to an assisted living facility for . On interview, the patient denies new symptoms she is content with the current treatment Mental Status Exam Mental Status Exam Patient Appearance: Well Grooomed Patient Orientation: Person Level of Consciousness: Awake Patient Behavior: Cooperative Mood Description: Constricted Affect Description: Depressed Patient Cognition Impaired: Yes Ability to Follow Directions: Good Speech Pattern: Clear Memory Description: Intact Hallucinations: None Delusions: Not Present Thought Process: Linear Thought Content: positive for [place] and positive for Poverty of Content Judgement: Fair Diagnostics Vital Signs (24Hr): Vital Signs - 24 hr 11/07/21 21:03 11/08/21 08:00 Temperature 96.0 F L 96.8 F Pulse Rate 58 66 Respiratory Rate 18 16 Blood Pressure 107/54 L 124/84 Pulse Oximetry 99 98 BMI result Body Mass Index 30.2 Labs Labs: Laboratory Results - last 48 hr 11/07/21 06:30 COVID-19 ([facility]) Negative COVID-19 Clin Com See Note Medications Medications Current Medications Acetaminophen (Acetaminophen 325 Mg Tablet) 650 mg PO Q6H PRN PRN Reason: Headache/Pain Mild Scale (1-3) Al Hydroxide/Mg Hydroxide (Magnesium Hydrox/Alum Hydrox 30 Ml Oral.Susp) 30 ml PO Q6H PRN PRN Reason: Heartburn/Nausea Last Admin: 10/30/21 20:24 Dose: 30 ml Documented by: Aspirin (Aspirin Enteric Coated 81 Mg Jaleel.) 81 mg PO DAILY [facility] Last Admin: 11/08/21 09:29 Dose: 81 mg Documented by: Atorvastatin Calcium (Atorvastatin Calcium 20 Mg Tablet) 20 mg PO BEDTIME [facility] Last Admin: 11/07/21 20:49 Dose: 20 mg Documented by: Divalproex Sodium (Divalproex Sodium Sprinkles 125 Mg ) 125 mg PO TID [facility] Last Admin: 11/08/21 09:29 Dose: 125 mg Documented by: Donepezil HCl (Donepezil Hcl 10 Mg Tablet) 10 mg PO DAILY [facility] Last Admin: 11/08/21 09:29 Dose: 10 mg Documented by: Famotidine (Famotidine 20 Mg Tablet) 20 mg PO DAILY [facility] Last Admin: 11/08/21 09:30 Dose: 20 mg Documented by: Fluoxetine HCl (Fluoxetine Hcl 20 Mg Capsule) 60 mg PO DAILY [facility] Last Admin: 11/08/21 09:30 Dose: 60 mg Documented by: Hydrochlorothiazide (Hydrochlorothiazide 12.5 Mg Tablet) 12.5 mg PO DAILY [facility] Last Admin: 11/08/21 09:29 Dose: 12.5 mg Documented by: Hydroxyzine HCl (Hydroxyzine Hcl 25 Mg Tablet) 25 mg PO Q6H PRN PRN Reason: Anxiety Levothyroxine Sodium (Levothyroxine Sodium 75 Mcg Tablet) 75 mcg PO DAILY [facility] Last Admin: 11/08/21 09:29 Dose: 75 mcg Documented by: Losartan Potassium (Losartan Potassium 50 Mg Tablet) 50 mg PO DAILY [facility] Last Admin: 11/08/21 09:30 Dose: 50 mg Documented by: Magnesium Hydroxide (Milk Of Magnesia 30 Ml Oral.Susp) 30 ml PO DAILY PRN PRN Reason: Constipation Sodium Chloride (Sodium Chloride 0.65 % Nasal 44 Ml Sprbtl) 1 spray NOSTRIL-B QID PRN PRN Reason: Allergy Symptoms Sodium Chloride (Sodium Chloride Tab 1 Gm Tablet) 1 gm PO DAILY [facility] Last Admin: 11/08/21 09:29 Dose: 1 gm Documented by: Trazodone HCl (Trazodone Hcl 50 Mg Tablet) 50 mg PO BEDTIME PRN PRN Reason: Insomnia Last Admin: 11/05/21 20:26 Dose: 50 mg Documented by: Trazodone HCl (Trazodone Hcl 25 Mg Halftab) 25 mg PO TID PRN PRN Reason: Anxiety Last Admin: 10/25/21 20:31 Dose: 25 mg Documented by: Allergies Allergies Allergy/AdvReac Type Severity Reaction Status Date / Time iodine Allergy Intermediate Rash Verified 10/19/21 21:07 Assessment & Plan Assessment & Plan (1) MDD (major depressive disorder), recurrent episode, moderate: Status: Acute Code(s): F33.1 - Major depressive disorder, recurrent, moderate (2) Dementia: Status: Inactive Code(s): F03.90 - Unspecified dementia without behavioral disturbance (3) Major neurocognitive disorder: Status: Acute Code(s): F03.90 - Unspecified dementia without behavioral disturbance Plan The patient is an elderly female with a history of dementia transfer in from her assisted living facility for an episode of violence in the context of UTI. On admission, she has never been violent and she is pleasant and cooperative but looks confused. Some periods of irritability intrusiveness Continue fluoxetine Aricept Keep a low dose of Depakote to target mood lability. Arrange for discharge planning for Add Covid 19 pcr tomorrow AM. I spent __20____ minutes with the patient and/or on the patient floor today, greater than?50% of which was spent counseling/coordinating care. Reason for contiued inpatient stay Substantial Risk for: inability to function, rapid decompensation and med/psych decompensation
[2021-11-08 18:38] LABS: Influenza A PCR NEGATIVE (Negative); Influenza B PCR NEGATIVE (Negative); Resp Syncy Virus RNA Qual PCR NEGATIVE (Negative); SARS COV2 PCR INHOUSE NEGATIVE (Negative)
[2021-11-08] MEDS: Atorvastatin Calcium 20 MG TABLET PO (20:34)
[2021-11-08 20:56] VITALS: BP 135/64; PULSE 62; RESP 17; TEMP 36.7; O2SAT 100
[2021-11-09 06:00] VITALS: BP 108/68; PULSE 64; RESP 20; TEMP 36.2; O2SAT 92
[2021-11-09] MEDS: Aspirin Enteric Coated 81 MG TABLET.DR PO (08:10)
[2021-11-09] MEDS: Sodium Chloride Tab 1 GM TABLET PO (08:10)
[2021-11-09] MEDS: Donepezil HCl 10 MG TABLET PO (08:10)
[2021-11-09] MEDS: Divalproex Sodium Sprinkles 125 MG CAP.DR.SPR PO ×3 (08:10→20:35)
[2021-11-09] MEDS: Famotidine 20 MG TABLET PO (08:10)
[2021-11-09] MEDS: Levothyroxine Sodium 75 MCG TABLET PO (08:11)
[2021-11-09] MEDS: hydroCHLOROthiazide 12.5 MG TABLET PO (08:11)
[2021-11-09] MEDS: Losartan Potassium 50 MG TABLET PO (08:11)
[2021-11-09] MEDS: FLUoxetine HCl 20 MG CAPSULE 60 MG PO (08:11)
--- NOTE | 2021-11-09 13:03 | P.PNPSI_ITS ---
Subjective Subjective Date of Service: 11/09/21 Reason For Visit: Unspecified dementia Interim History: The nursing staff reported the patient has been fully compliant with treatment, there is no evidence of aggressive behavior. On interview, the patient was very pleasant and cooperative denies new symptoms and she denies any side effects with the current treatment Mental Status Exam Mental Status Exam Patient Appearance: Well Grooomed Patient Orientation: Person Level of Consciousness: Awake Patient Behavior: Cooperative Mood Description: Calm Affect Description: Constricted Patient Cognition Impaired: Yes Ability to Follow Directions: Good Speech Pattern: Clear Hallucinations: None Delusions: Not Present Thought Process: Distracted Thought Content: positive for Circumstantial and positive for Poverty of Content Judgement: Fair Diagnostics Vital Signs (24Hr): Vital Signs - 24 hr 11/08/21 20:56 11/09/21 06:00 Temperature 98.1 F 97.2 F Pulse Rate 62 64 Respiratory Rate 17 20 Blood Pressure 135/64 108/68 Pulse Oximetry 100 92 BMI result Body Mass Index 30.2 Labs Labs: Laboratory Results - last 48 hr 11/08/21 17:45 Influenza Type A (PCR) NEGATIVE Influenza Type B (PCR) NEGATIVE RSV RNA Qual (PCR) NEGATIVE SARS-CoV-2 RNA (RT-PCR) NEGATIVE Medications Medications Current Medications Acetaminophen (Acetaminophen 325 Mg Tablet) 650 mg PO Q6H PRN PRN Reason: Headache/Pain Mild Scale (1-3) Al Hydroxide/Mg Hydroxide (Magnesium Hydrox/Alum Hydrox 30 Ml Oral.Susp) 30 ml PO Q6H PRN PRN Reason: Heartburn/Nausea Last Admin: 10/30/21 20:24 Dose: 30 ml Documented by: Aspirin (Aspirin Enteric Coated 81 Mg Jaleel.) 81 mg PO DAILY [facility] Last Admin: 11/09/21 08:10 Dose: 81 mg Documented by: Atorvastatin Calcium (Atorvastatin Calcium 20 Mg Tablet) 20 mg PO BEDTIME [facility] Last Admin: 11/08/21 20:34 Dose: 20 mg Documented by: Divalproex Sodium (Divalproex Sodium Sprinkles 125 Mg Spr) 125 mg PO TID [facility] Last Admin: 11/09/21 08:10 Dose: 125 mg Documented by: Donepezil HCl (Donepezil Hcl 10 Mg Tablet) 10 mg PO DAILY [facility] Last Admin: 11/09/21 08:10 Dose: 10 mg Documented by: Famotidine (Famotidine 20 Mg Tablet) 20 mg PO DAILY [facility] Last Admin: 11/09/21 08:10 Dose: 20 mg Documented by: Fluoxetine HCl (Fluoxetine Hcl 20 Mg Capsule) 60 mg PO DAILY [facility] Last Admin: 11/09/21 08:11 Dose: 60 mg Documented by: Hydrochlorothiazide (Hydrochlorothiazide 12.5 Mg Tablet) 12.5 mg PO DAILY [facility] Last Admin: 11/09/21 08:11 Dose: 12.5 mg Documented by: Hydroxyzine HCl (Hydroxyzine Hcl 25 Mg Tablet) 25 mg PO Q6H PRN PRN Reason: Anxiety Levothyroxine Sodium (Levothyroxine Sodium 75 Mcg Tablet) 75 mcg PO DAILY [facility] Last Admin: 11/09/21 08:11 Dose: 75 mcg Documented by: Losartan Potassium (Losartan Potassium 50 Mg Tablet) 50 mg PO DAILY [facility] Last Admin: 11/09/21 08:11 Dose: 50 mg Documented by: Magnesium Hydroxide (Milk Of Magnesia 30 Ml Oral.Susp) 30 ml PO DAILY PRN PRN Reason: Constipation Sodium Chloride (Sodium Chloride 0.65 % Nasal 44 Ml Sprbtl) 1 spray NOSTRIL-B QID PRN PRN Reason: Allergy Symptoms Sodium Chloride (Sodium Chloride Tab 1 Gm Tablet) 1 gm PO DAILY [facility] Last Admin: 11/09/21 08:10 Dose: 1 gm Documented by: Trazodone HCl (Trazodone Hcl 50 Mg Tablet) 50 mg PO BEDTIME PRN PRN Reason: Insomnia Last Admin: 11/05/21 20:26 Dose: 50 mg Documented by: Trazodone HCl (Trazodone Hcl 25 Mg Halftab) 25 mg PO TID PRN PRN Reason: Anxiety Last Admin: 10/25/21 20:31 Dose: 25 mg Documented by: Allergies Allergies Allergy/AdvReac Type Severity Reaction Status Date / Time iodine Allergy Intermediate Rash Verified 10/19/21 21:07 Assessment & Plan Assessment & Plan (1) MDD (major depressive disorder), recurrent episode, moderate: Status: Acute Code(s): F33.1 - Major depressive disorder, recurrent, moderate (2) Dementia: Status: Inactive Code(s): F03.90 - Unspecified dementia without behavioral disturbance (3) Major neurocognitive disorder: Status: Acute Code(s): F03.90 - Unspecified dementia without behavioral disturbance Plan The patient is an elderly female with a history of dementia transfer in from her assisted living facility for an episode of violence in the context of UTI. On admission, she has never been violent and she is pleasant and cooperative but looks confused. Some periods of irritability intrusiveness Continue fluoxetine Aricept Keep a low dose of Depakote to target mood lability. Arrange for discharge planning for Add Covid 19 pcr tomorrow AM. I spent __20____ minutes with the patient and/or on the patient floor today, greater than?50% of which was spent counseling/coordinating care. Reason for contiued inpatient stay Substantial Risk for: inability to function, rapid decompensation and med/psych decompensation
[2021-11-09] MEDS: Atorvastatin Calcium 20 MG TABLET PO (20:35)
[2021-11-09 21:32] VITALS: BP 137/73; PULSE 63; RESP 18; TEMP 36.3; O2SAT 100
[2021-11-10 06:00] VITALS: BP 126/74; PULSE 76; TEMP 36.3; O2SAT 92
[2021-11-10] MEDS: FLUoxetine HCl 20 MG CAPSULE 60 MG PO (08:30)
[2021-11-10] MEDS: Donepezil HCl 10 MG TABLET PO (08:31)
[2021-11-10] MEDS: Divalproex Sodium Sprinkles 125 MG CAP.DR.SPR PO ×3 (08:31→20:19)
[2021-11-10] MEDS: Levothyroxine Sodium 75 MCG TABLET PO (08:31)
[2021-11-10] MEDS: Sodium Chloride Tab 1 GM TABLET PO (08:31)
[2021-11-10] MEDS: Famotidine 20 MG TABLET PO (08:31)
[2021-11-10] MEDS: Losartan Potassium 50 MG TABLET PO (08:31)
[2021-11-10] MEDS: hydroCHLOROthiazide 12.5 MG TABLET PO (08:31)
[2021-11-10] MEDS: Aspirin Enteric Coated 81 MG TABLET.DR PO (08:31)
--- NOTE | 2021-11-10 12:41 | HO.PSYCHPN ---
Subjective Subjective Date of Service: 11/10/21 Reason For Visit: Unspecified dementia Subjective Notes: Conditional Voluntary Interim History: The nursing staff reported the patient has been pleasant and cooperative, having all her meals and sleeping well. The nursing staff also reported that the patient has being participated in groups. The clinical social work therapist reported that were planning for discharge tomorrow 20 DARRELL at 13:00. On interview the patient is happy that she is going to be discharged tomorrow no new symptoms Mental Status Exam Mental Status Exam Patient Appearance: Well Grooomed Patient Orientation: Person Level of Consciousness: Awake Patient Behavior: Cooperative Mood Description: Depressed Affect Description: Constricted Patient Cognition Impaired: Yes Ability to Follow Directions: Good Speech Pattern: Clear Hallucinations: None Delusions: Not Present Thought Process: Distracted and Evasive Thought Content: positive for [place] and positive for Circumstantial Judgement: Fair Diagnostics Vital Signs (24Hr): Vital Signs - 24 hr 11/09/21 21:32 11/10/21 06:00 Temperature 97.4 F 97.4 F Pulse Rate 63 76 Respiratory Rate 18 Blood Pressure 137/73 126/74 Pulse Oximetry 100 92 BMI result Body Mass Index 30.2 Labs Labs: Laboratory Results - last 48 hr 11/08/21 17:45 Influenza Type A (PCR) NEGATIVE Influenza Type B (PCR) NEGATIVE RSV RNA Qual (PCR) NEGATIVE SARS-CoV-2 RNA (RT-PCR) NEGATIVE Medications Medications Current Medications Acetaminophen (Acetaminophen 325 Mg Tablet) 650 mg PO Q6H PRN PRN Reason: Headache/Pain Mild Scale (1-3) Al Hydroxide/Mg Hydroxide (Magnesium Hydrox/Alum Hydrox 30 Ml Oral.Susp) 30 ml PO Q6H PRN PRN Reason: Heartburn/Nausea Last Admin: 10/30/21 20:24 Dose: 30 ml Documented by: Aspirin (Aspirin Enteric Coated 81 Mg Tablet.) 81 mg PO DAILY [facility] Last Admin: 11/10/21 08:31 Dose: 81 mg Documented by: Atorvastatin Calcium (Atorvastatin Calcium 20 Mg Tablet) 20 mg PO BEDTIME [facility] Last Admin: 11/09/21 20:35 Dose: 20 mg Documented by: Divalproex Sodium (Divalproex Sodium Sprinkles 125 Mg ) 125 mg PO TID [facility] Last Admin: 11/10/21 08:31 Dose: 125 mg Documented by: Donepezil HCl (Donepezil Hcl 10 Mg Tablet) 10 mg PO DAILY [facility] Last Admin: 11/10/21 08:31 Dose: 10 mg Documented by: Famotidine (Famotidine 20 Mg Tablet) 20 mg PO DAILY [facility] Last Admin: 11/10/21 08:31 Dose: 20 mg Documented by: Fluoxetine HCl (Fluoxetine Hcl 20 Mg Capsule) 60 mg PO DAILY [facility] Last Admin: 11/10/21 08:30 Dose: 60 mg Documented by: Hydrochlorothiazide (Hydrochlorothiazide 12.5 Mg Tablet) 12.5 mg PO DAILY [facility] Last Admin: 11/10/21 08:31 Dose: 12.5 mg Documented by: Hydroxyzine HCl (Hydroxyzine Hcl 25 Mg Tablet) 25 mg PO Q6H PRN PRN Reason: Anxiety Levothyroxine Sodium (Levothyroxine Sodium 75 Mcg Tablet) 75 mcg PO DAILY [facility] Last Admin: 11/10/21 08:31 Dose: 75 mcg Documented by: Losartan Potassium (Losartan Potassium 50 Mg Tablet) 50 mg PO DAILY [facility] Last Admin: 11/10/21 08:31 Dose: 50 mg Documented by: Magnesium Hydroxide (Milk Of Magnesia 30 Ml Oral.Susp) 30 ml PO DAILY PRN PRN Reason: Constipation Sodium Chloride (Sodium Chloride 0.65 % Nasal 44 Ml Sprbtl) 1 spray NOSTRIL-B QID PRN PRN Reason: Allergy Symptoms Sodium Chloride (Sodium Chloride Tab 1 Gm Tablet) 1 gm PO DAILY [facility] Last Admin: 11/10/21 08:31 Dose: 1 gm Documented by: Trazodone HCl (Trazodone Hcl 50 Mg Tablet) 50 mg PO BEDTIME PRN PRN Reason: Insomnia Last Admin: 11/05/21 20:26 Dose: 50 mg Documented by: Trazodone HCl (Trazodone Hcl 25 Mg Halftab) 25 mg PO TID PRN PRN Reason: Anxiety Last Admin: 10/25/21 20:31 Dose: 25 mg Documented by: Allergies Allergies Allergy/AdvReac Type Severity Reaction Status Date / Time iodine Allergy Intermediate Rash Verified 10/19/21 21:07 Assessment & Plan Assessment & Plan (1) MDD (major depressive disorder), recurrent episode, moderate: Status: Acute Code(s): F33.1 - Major depressive disorder, recurrent, moderate (2) Dementia: Status: Inactive Code(s): F03.90 - Unspecified dementia without behavioral disturbance (3) Major neurocognitive disorder: Status: Acute Code(s): F03.90 - Unspecified dementia without behavioral disturbance Plan The patient is an elderly female with a history of dementia transfer in from her assisted living facility for an episode of violence in the context of UTI. On admission, she has never been violent and she is pleasant and cooperative but looks confused. Some periods of irritability intrusiveness Continue fluoxetine Aricept Keep a low dose of Depakote to target mood lability. Arrange for discharge planning for Add Covid 19 pcr tomorrow AM. I spent ___20___ minutes with the patient and/or on the patient floor today, greater than?50% of which was spent counseling/coordinating care. Reason for contiued inpatient stay Substantial Risk for: inability to function, rapid decompensation and med/psych decompensation
[2021-11-10 18:00] VITALS: BP 128/72; PULSE 72; RESP 18; TEMP 36.4; O2SAT 98
[2021-11-10] MEDS: Atorvastatin Calcium 20 MG TABLET PO (20:19)
[2021-11-11 06:00] VITALS: BP 131/75; PULSE 66; RESP 14; TEMP 36.4; O2SAT 98
[2021-11-11] MEDS: Donepezil HCl 10 MG TABLET PO (08:46)
[2021-11-11] MEDS: Divalproex Sodium Sprinkles 125 MG CAP.DR.SPR PO (08:46)
[2021-11-11] MEDS: Aspirin Enteric Coated 81 MG TABLET.DR PO (08:46)
[2021-11-11] MEDS: FLUoxetine HCl 20 MG CAPSULE 60 MG PO (08:46)
[2021-11-11] MEDS: Sodium Chloride Tab 1 GM TABLET PO (08:46)
[2021-11-11] MEDS: Levothyroxine Sodium 75 MCG TABLET PO (08:46)
[2021-11-11] MEDS: Famotidine 20 MG TABLET PO (08:46)
[2021-11-11] MEDS: hydroCHLOROthiazide 12.5 MG TABLET PO (08:46)
[2021-11-11] MEDS: Losartan Potassium 50 MG TABLET PO (08:47)
--- NOTE | 2021-11-11 11:09 | PM.PSYDC ---
DS: Providers Provider Date of Service: 11/11/21 Date of admission: 10/19/21 20:24 Date of discharge: 11/11/21 Primary care physician: Unknown Physician Consults: 10/19/21 21:09 Consult to Hospitalist Routine Consulting Provider: Hospitalist Reason For Exam: medical management DS: Diagnosis Discharge Diagnosis (1) MDD (major depressive disorder), recurrent episode, moderate: Status: Acute (2) Dementia: Status: Inactive (3) Major neurocognitive disorder: Status: Acute DS: Medications Discharge Medications Home Medications: Home Medications Medication Instructions Recorded Confirmed acetaminophen 500 mg tablet 1,000 mg PO Q4H PRN 10/19/21 10/19/21 aspirin 81 mg tablet,delayed 81 mg PO DAILY 10/19/21 10/19/21 release atorvastatin 20 mg tablet 20 mg PO BEDTIME 10/19/21 10/19/21 donepezil 10 mg tablet 10 mg PO DAILY 10/19/21 10/19/21 fluoxetine 60 mg tablet 60 mg PO DAILY 10/19/21 10/19/21 levothyroxine 75 mcg tablet 75 mcg PO DAILY 10/19/21 10/19/21 losartan 50 mg-hydrochlorothiazide 1 tab PO DAILY 10/19/21 10/19/21 12.5 mg tablet nebivolol 5 mg tablet (Bystolic) 5 mg PO DAILY 10/19/21 10/19/21 sodium chloride 0.65 % nasal spray 1 spray INTRANASAL QID PRN 10/19/21 10/19/21 aerosol (Saline Nasal) sodium chloride 1 gram tablet 1,000 mg PO DAILY 10/19/21 10/19/21 Mental Status Exam Mental Status Exam Patient Appearance: Well Grooomed Patient Orientation: Person and Situation Level of Consciousness: Awake Patient Behavior: Cooperative Mood Description: Calm Affect Description: Constricted Patient Cognition Impaired: Yes Ability to Follow Directions: Good Speech Pattern: Clear Hallucinations: None Delusions: Not Present and Paranoid Ideation Thought Process: Distracted and Evasive Thought Content: positive for [place], positive for Circumstantial and positive for Poverty of Content Judgement: Fair Data Data Completed and Pending Completed studies during hospitalization [Text1]: 11/07/21 11/08/21 06:30 17:45 COVID-19 ([facility]AR) Negative COVID-19 Clin Com See Note Influenza Type A (PCR) NEGATIVE Influenza Type B (PCR) NEGATIVE RSV RNA Qual (PCR) NEGATIVE SARS-CoV-2 RNA (RT-PCR) NEGATIVE 11/03/21 12:10 Urine clean catch - Urine chaidez top Urine Culture - Final DS: Summary Hospital Course Hospital Course: The patient was admitted for altered mental status in the context of UTI and violent behavior please see the admission note for further details. On admission, we also wrote her behavior sings she was pleasant and cooperative, easily redirectable with no need of medications besides mild verbal redirection but eventually we realized the patient had mild impulsivity so we added a low dose of Depakote to target that. The patient's mood improved, she was pleasant cooperative easily redirectable but confused. We did a [place] test and she scored very low. The clinical social work therapist team worked with her family and they found a proper setting for her. She will be transferred to an assisted living facility in her catchment area. Since there were no safety concerns, discharge planning was discussed Time spent discussing smoking cessation with patient: 3 to 10 minutes Status at Discharge Cognitive/behavioral status at discharge: At baseline Functional status at discharge: independent ambulation Overall status at discharge: patient is back to baseline Time Spent with Patient Time attestation: Total time spent providing and/or coordinating discharge services: Time spent: Less than 30 minutes Discharge Plan Discharge Patient Disposition: Xfer LTC Discharge Diagnosis: Altered mental status resolved. Dementia Referrals: Physician,Radu J [Primary Care Provider] - 1 Week Discharge Medications: New trazodone 50 mg Tablet 50 mg PO BEDTIME PRN (Reason: Insomnia) 30 Days 0RF famotidine 20 mg Tablet 20 mg PO DAILY 30 Days Qty: 30 0RF magnesium hydroxide [Milk of Magnesia] 400 mg/5 mL Suspension 30 ml PO DAILY PRN (Reason: Constipation) Qty: 355 0RF divalproex 125 mg Capsule, Delayed Rel Sprinkle 125 mg PO TID 30 Days Qty: 90 0RF trazodone 50 mg tablet 25 mg PO TID 30 Days Qty: 45 0RF Continued sodium chloride 1 gram Tablet 1,000 mg PO DAILY 0RF levothyroxine 75 mcg Tablet 75 mcg PO DAILY 0RF Saline Nasal 0.65 % Aerosol,[place] 1 spray INTRANASAL QID PRN (Reason: Allergy Symptoms) 0RF atorvastatin 20 mg Tablet 20 mg PO BEDTIME 30 Days Qty: 30 0RF donepezil 10 mg Tablet 10 mg PO DAILY 30 Days Qty: 30 0RF aspirin 81 mg Tablet,Delayed Release (Dr/Ec) 81 mg PO DAILY 30 Days Qty: 30 0RF acetaminophen 500 mg Tablet 1,000 mg PO Q4H PRN (Reason: Pain) 30 Days Qty: 120 0RF losartan-hydrochlorothiazide 50-12.5 mg Tablet 1 tab PO DAILY 30 Days Qty: 30 0RF nebivolol [Bystolic] 5 mg Tablet 5 mg PO DAILY 30 Days Qty: 30 0RF fluoxetine 60 mg Tablet 60 mg PO DAILY 30 Days Qty: 30 0RF Discharge Orders: Discharge Order (Routine); Ordered 11/11/21 Ordered By: Saurabh Lucas Diet: advance to usual diet Activity on Discharge: As tolerated Stand Alone Forms: Patient Portal Discharge page Care Plan Goals: Care plan goals achieved in this admission Health Concerns: Continue treatment as an outpatient Plan of Treatment: Continue treatment as an outpatient Assessment: Elderly female with history of cognitive impairment who was admitted that after an episode of violence in the context of delirium induced by UTI that was resolved and early in the admission. At this moment safe in the community
--- NOTE | 2021-11-11 12:15 | PC.NURSE ---
Patient oriented to self only. Presents as calm, cooperative, pleasant however confused to situation. Patient believes she is going to her son's who is building an apartment for her. Patient discharge information will go with patient to facility. Patient is appropriately dressed and ready for discharge.
== END 2021-11-11 13:09 | DRG 885 ==
PROVIDERS: Psychiatry & Neurology Psychiatry; Social Worker; Admitting Provider Psychiatry & Neurology Psychiatry; Visit Provider Psychiatry & Neurology Psychiatry
DX: F33.1 Major depressive disorder, recurrent, moderate (principal); F03.91 Unspecified dementia, unspecified severity, with behavioral disturbance; E03.9 Hypothyroidism, unspecified; E78.5 Hyperlipidemia, unspecified; I10 Essential (primary) hypertension; Z20.822 Contact with and (suspected) exposure to COVID-19; Z79.82 Long term (current) use of aspirin; Z79.890 Hormone replacement therapy; Z79.899 Other long term (current) drug therapy
CPT/HCPCS: 0241U; 36415; 80061; 81001; 81003; 82607; 82746; 83036; 84443; 87086; 87635